=== PATIENT | male | born 1950 | race Caucasian/White ===

== ENCOUNTER 2023-09-26 07:37 | Emergency (ER) | payer MEDICARE, OTHER, SELFPAY ==
--- NOTE | 2023-09-26 07:37 | ECG_ITS ---
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 Measurements Intervals [place] Rate: 78 P: 59 [place]: 161 QRS: 39 QRSD: 108 T: 55 QT: 361 QTc: 413 Interpretive Statements SINUS RHYTHM INCOMPLETE RIGHT BUNDLE BRANCH BLOCK [90+ ms QRS DURATION, TERMINAL R IN V1/V2, 40+ ms S IN I/aVL/V4/V5/V6] No previous ECG available for comparison Electronically Signed On 09-27-2023 0:40:01 SIDE STAPLER by Vicki Sparks M.D. [id number] f
[2023-09-26 07:40] VITALS: BP 167/92; PULSE 82; RESP 16; TEMP 37.1; O2SAT 98; BMI 41.8
--- NOTE | 2023-09-26 07:40 | XR_ITS ---
WS: [id number] Portable AP upright chest, 09/26/2023 Clinical Data: chest pain Comparison: None. Findings: No nodules, masses or effusions are seen. The heart is normal. The pulmonary vascularity is not increased. No pneumonia or pneumothorax is seen. The diaphragms are flattened. The aortic arch s hows minimal calcification. There are monitor leads on the chest wall. There are orthopedic anchors s een in each humeral head. Impression: Atherosclerosis and hyperinflation.
--- NOTE | 2023-09-26 07:45 | ED_ITS ---
HPI - Chest Pain General: Chief Complaint: Chest Pain Stated Complaint: CP Time Seen by Provider: 09/26/23 07:38 Source: patient Mode of arrival: ambulatory History of Present Illness: 73-year-old male presents emergency room complaining of chest pain. Began this morning while he was sitting drinking coffee arrest he did fall and landed on his left side last night. He did not strike his head did not lose consciousness the episode this morning seem to resolve after he had a couple of nitro and took some aspirin. He has not had any other anginal episodes recently. Patient has a known history of coronary disease previous had angiography with stenting. He is not diabetic he is a former smoker he quit many years ago. No radiation of pain diaphoresis nausea or vomiting associated with this episode. MD complaint: chest pain Associated symptoms: Deny abdominal pain, dyspnea or fever(s) Review of Systems Const: Denies: fever(s) or chills Card: Reports: chest pain Resp: Denies: dyspnea GI: Denies: abdominal pain : Denies: dysuria, urinary frequency or urinary urgency Musc: Denies: neck pain or back pain Skin/Breast: Denies: rash PFSH ED PFSH: Medical History (Updated 09/26/23 @ 10:56 by Jordy Ngo DO) Coronary artery disease Hypertension Surgical History (Updated 09/26/23 @ 08:05 by Jordy Ngo DO) History of coronary artery stent placement Social History (Updated 09/26/23 @ 08:05 by Jordy Ngo DO) Smoking and tobacco/nicotine status: former use of tobacco/nicotine Physical Exam Const: COMMON NORMALS: no acute distress GENERAL APPEARANCE: cooperative and comfortable ORIENTATION/CONSCIOUSNESS: Yes awake, Yes oriented to person, Yes oriented to place and Yes oriented to time HENMT: COMMON NORMALS: normocephalic, atraumatic and hearing grossly normal bilaterally HEAD & SCALP: normocephalic and atraumatic Resp: COMMON NORMALS: normal respiratory effort, No retractions, No use of accessory muscles and clear to auscultation bilaterally AUSCULTATION: clear to auscultation bilaterally Cardio: COMMON NORMALS: regular rate, regular rhythm and No murmurs present (Cardio) RATE: regular rate RHYTHM: regular rhythm GI: COMMON NORMALS: Soft to palpation and No hepatosplenomegaly present AUSCULTATION: Yes normoactive bowel sounds PALPATION: Yes Soft to palpation, No Tenderness to palpation present (GI), No Guarding due to palpation present (GI) and Yes No hepatosplenomegaly present Extremity: COMMON NORMALS: normal to inspection, capillary refill normal, no clubbing, cyanosis or edema, no calf tenderness and no pedal edema Neuro: SENSORIUM/ORIENTATION: Yes oriented to person, Yes oriented to place and Yes oriented to time Skin: COMMON NORMALS: no rashes or lesions noted GENERAL SKIN EXAM: no rashes or lesions noted Course Vital Signs: Vital signs: Vital Signs Temperature 98.8 F 09/26/23 07:40 Pulse Rate 84 09/26/23 11:14 Respiratory Rate 17 09/26/23 11:14 Blood Pressure 119/78 09/26/23 11:14 Pulse Oximetry 97 09/26/23 11:14 Oxygen Delivery Me thod Room Air 09/26/23 09:57 MDM - Chest Pain Medical Decision Making No acute ST segment changes on his EKG cardiac enzymes trending negative. Pain is resolved and has not had any recurrence. We will discharge patient home on isosorbide mononitrate 30 mg once daily. Patient states about a year and a half ago he had a Lexiscan sestamibi stress test which he was told was negative. R echeck for any worsening symptoms also Case management try to get him an appointment to establish with cardiology Medical Records I reviewed the patient's medical records. Lab Data I reviewed the patient's lab results. 09/26/23 07:51 09/26/23 07:51 Laboratory Results WBC 7.90 10^3/uL (3.29-11.43) 09/26/23 07:51 RBC 4.31 10^6/uL (3.85-5.65) 09/26/23 07:51 Hgb 14.50 g/dL (11.27-16.99) 09/26/23 07:51 Hct 42.6 % (37-53) 09/26/23 07:51 MCV 98.8 fl (82-101) 09/26/23 07:51 MCH 33.6 pg (27-33) H 09/26/23 07:51 MCHC 34.0 g/dL (30-55) 09/26/23 07:51 RDW 13.1 % (12.1-15.1) 09/26/23 07:51 Plt Count 257 10^3/cmm (157-399) 09/26/23 07:51 MPV 9.2 fL (7.4-10.4) 09/26/23 07:51 Neut % (Auto) 48.2 % 09/26/23 07:51 Lymph % (Auto) 37.1 % 09/26/23 07:51 [place] % (Auto) 8.7 % 09/26/23 07:51 Eos % (Auto) 5.3 % 09/26/23 07:51 Baso % (Auto) 0.6 % 09/26/23 07:51 Neut # (Auto) 3.80 10^3/uL (1.8-7.7) 09/26/23 07:51 Lymph # (Auto) 2.9 10^3/uL (0.8-4.8) 09/26/23 07:51 [place] # (Auto) 0.7 10^3/uL (0.2-0.9) 09/26/23 07:51 Eos # (Auto) 0.4 10^3/uL (0.0-0.8) 09/26/23 07:51 Baso # (Auto) 0.1 10^3/uL (0.0-0.1) 09/26/23 07:51 Nucleated RBC % (auto) 0 % 09/26/23 07:51 Nucleated RBCs # 0.0 /100WBC 09/26/23 07:51 Sodium 139 mmol/L (136-145) 09/26/23 07:51 Potassium 4.3 mmol/L (3.5-5.1) 09/26/23 07:51 Chloride 105 mmol/L (98-107) 09/26/23 07:51 Carbon Dioxide 26 mmol/L (22-29) 09/26/23 07:51 Anion Gap 12.3 (5-19) 09/26/23 07:51 BUN 16 mg/dL (8-23) 09/26/23 07:51 Creatinine 0.8 mg/dL (0.7-1.2) 09/26/23 07:51 GFR Calculation Not Reportable 09/26/23 07:51 Glucose 109 mg/dL (65-115) 09/26/23 07:51 Calculated Osmolality 290 mOsm/kg (285-295) 09/26/23 07:51 Calcium 8.8 mg/dL (8.5-10.5) 09/26/23 07:51 Total Bilirubin 0.8 mg/dL (0.15-1.2) 09/26/23 07:51 AST 24 U/L (0-40) 09/26/23 07:51 ALT 27 U/L (0-41) 09/26/23 07:51 Alkaline Phosphatase 74 U/L (40-130) 09/26/23 07:51 Troponin T Baseline 11 ng/L (0-15) 09/26/23 07:51 Troponin T 120 Minute 11.28 ng/L (0-15) 09/26/23 09:39 Delta Troponin T 0.28 ABS# (0-10) 09/26/23 09:39 Total Protein 6.3 g/dL (6.6-8.7) L 09/26/23 07:51 Albumin 3.7 g/dL (3.5-5.2) 09/26/23 07:51 Globulin 2.6 g/dL (1.3-4.6) 09/26/23 07:51 All radiology interpretation(s) finalized by discharge Discharge Plan Discharge Patient Disposition: Home Clinical Impression: Chest pain Condition: Stable Prescriptions: New isosorbide mononitrate 30 mg tablet extended release 24 hr 30 mg PO DAILY Qty: 30 0RF No Action atorvastatin 80 mg Tablet 80 mg PO QPM meloxicam 15 mg Tablet 15 mg PO DAILY Aspir-81 81 mg Tablet,Delayed Release (Dr/Ec) 81 mg PO DAILY Tylenol Arthritis 650 mg Tablet Extended Release 650 mg PO Q8H PRN (Reason: Pain) Calcium 600 600 mg calcium (1,500 mg) Tablet 600 mg PO DAILY Nitrostat 0.4 mg Tablet, Sublingual 0.4 mg SUBLINGUAL Q5M PRN (Reason: Chest Pain) Rx Instructions: do not exceed 3 doses per episode Super B Complex Tablet 1 tab PO DAILY metoprolol succinate 25 mg Tablet Extended Release 24 Hr 25 mg PO DAILY albuterol sulfate 90 mcg/actuation Hfa Aerosol Inhaler 2 puff INHALATION Q6H PRN (Reason: Shortness Of Breath Or Wheezing) loratadine 10 mg Tablet 10 mg PO DAILY Vitamin D3 25 mcg (1,000 unit) Capsule 25 mcg PO DAILY Symbicort 80-4.5 mcg/actuation Hfa Aerosol Inhaler 2 puff INHALATION BID omeprazole 20 mg Tablet,Delayed Release (Dr/Ec) 20 mg PO DAILY PRN (Reason: Acid Reflux) [place] 3 Fish Oil 684-1,200 mg Capsule,Delayed Release(Dr/Ec) 1 cap PO DAILY Bvnwkt-Spssa-WSR (with antiox) 500-500-66.7 mg Tablet 1 tab PO DAILY Ofev 150 mg Capsule 150 mg PO Q12H Carnivora 1 tab PO TID Tumeric 800 800 mg PO DAILY Discharge Orders: Discharge ED (Routine); Ordered 09/26/23 Ordered By: Jordy Ngo Discharge Diet: Usual diet Discharge Activity: Limit activity as instructed Patient Instructions: Opioid Safety, Pain Management Activity Restrictions/Additional Instructions: Thank you for choosing [facility] for your healthcare needs today. Please realize this is an emergency room and that we are providing you with a medical screening exam and this may not be complete and all inclusive of all the testing and or work up that you may need to determine your ailment or severity of your illness. It is very important that you follow up as instructed or that you return to the Emergency Department should you have concerns or if your condition changes or worsens in any way. You are seen today for chest pain. Your cardiac enzymes and EKG unremarkable recommend he start isosorbide mononitrate once daily. Case management make arrangements for you to have a cardiac stress test and evaluation with cardiology. Return if you have further problems. Coding Level of Care Code ED Virtual Customer Assistant for Soniya Watkins
[2023-09-26] MEDS: aspirin 81 mg Chew Tablet 324 MG PO (07:58)
[2023-09-26 08:04] LABS: Basophils # 0.1 10^3/uL (0.0-0.1); Basophils % 0.6 %; Eosinophils # 0.4 10^3/uL (0.0-0.8); Eosinophils % 5.3 %; Hematocrit 42.6 % (37-53); Lymphocytes # 2.9 10^3/uL (0.8-4.8); Lymphocytes % 37.1 %; Mean Corpuscular Hemoglobin 33.6 pg (27-33); Mean Corpuscular Volume 98.8 fl (82-101); Mean Platelet Volume 9.2 fL (7.4-10.4); Monocytes # 0.7 10^3/uL (0.2-0.9); Monocytes % 8.7 %; Neutrophils % 48.2 %; Nucleated Red Blood Cells % 0 %; Platelet Count 257 10^3/cmm (157-399); Red Blood Count 4.31 10^6/uL (3.85-5.65); Red Cell Distribution Width 13.1 % (12.1-15.1)
[2023-09-26 08:14] LABS: Troponin(5th) Baseline 11 ng/L (0-15)
[2023-09-26 08:24] LABS: Alanine Aminotransferase 27 U/L (0-41); Albumin Level 3.7 g/dL (3.5-5.2); Alkaline Phosphatase 74 U/L (40-130); Anion Gap 12.3 (5-19); Aspartate Amino Transferase 24 U/L (0-40); Blood Urea Nitrogen 16 mg/dL (8-23); Calcium 8.8 mg/dL (8.5-10.5); Carbon Dioxide 26 mmol/L (22-29); Chloride 105 mmol/L (98-107); Globulin 2.6 g/dL (1.3-4.6); Glucose 109 mg/dL (65-115); Osmolality Calculated 290 mOsm/kg (285-295); Potassium 4.3 mmol/L (3.5-5.1); Sodium 139 mmol/L (136-145); Total Bilirubin 0.8 mg/dL (0.15-1.2); Total Protein 6.3 g/dL (6.6-8.7)
--- NOTE | 2023-09-26 09:21 | ECG_ITS ---
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 Measurements Intervals [place] Rate: 64 P: 34 [place]: 159 QRS: 34 QRSD: 113 T: 51 QT: 400 QTc: 414 Interpretive Statements SINUS RHYTHM POSSIBLE RIGHT VENTRICULAR CONDUCTION DELAY [RSR (QR) IN V1/V2] Compared to ECG 09/26/2023 07:37:13 Incomplete right bundle-branch block no longer present Electronically Signed On 09-27-2023 0:50:43 SPRAY GUN STRIPER by Vicki Sparks M.D. [email or web address].[email or web address] biloxiStereobotmercy [email or web address]/store/[id number]
[2023-09-26 09:57] VITALS: PULSE 72; O2SAT 95
[2023-09-26 10:22] LABS: Troponin 5 2HR 11.28 ng/L (0-15); Troponin 5 2HR Delta 0.28 ABS# (0-10)
[2023-09-26 11:14] VITALS: BP 119/78; PULSE 84; RESP 17; O2SAT 97
--- NOTE | 2023-09-27 08:18 | DCPLANNER ---
Referral was sent to heart care on 09/27/23 at 0818. Clinic to contact patient.
--- NOTE | 2023-10-03 08:48 | DCPLANNER ---
Fax sent to centralized scheduling for lesly-
== END 2023-09-26 11:15 | disposition home or self-care (01) ==
PROVIDERS: Emergency Provider Family Medicine
DX: R07.9 Chest pain, unspecified (principal); Z79.82 Long term (current) use of aspirin; I25.10 Atherosclerotic heart disease of native coronary artery without angina pectoris; I10 Essential (primary) hypertension; Z87.891 Personal history of nicotine dependence
CPT/HCPCS: 36415; 71045; 80053; 84484; 85025; 93005; 99285

== ENCOUNTER 2023-10-08 07:00 | Outpatient (CLI) | payer MEDICARE, OTHER, SELFPAY ==
[2023-10-08 07:46] VITALS: BMI 42.3
--- NOTE | 2023-10-08 07:47 | ECG_ITS ---
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 Interpretive Statements NAME OF STUDY: LEXISCAN SESTAMIBI STRESS TEST INDICATION: Atypical Chest Pain, PROCEDURE: At the baseline, the EKG revealed normal sinus rhythm with incomplete right bundle branch block pattern. Some early repolarization changes in the inferior leads. The baseline heart was 80 bpm with a blood pressue of 156/78 mm of Hg. Lexiscan was infused over a period of 20 seconds. A total of 0.4 milligrams of Lexiscan was infused. The stress phase was continued for a total of 5 minutes. Heart rate at the end of the stress phase was 97 bpm with a blood pressure 161/111 mm of Hg. The EKG at the peak infusion revealed no significant changes. Sestamibi was injected 20 seconds after the Lexiscan infusion. Heart rate at the end of the recovery phase was 95 bpm with a blood pressure of 153/95 mm of Hg. CONCLUSION: 1. No significant EKG changes with the LexiScan infusion 2. No LexiScan induced chest pain or cardiac arrhythmia 3. Normal blood pressure and heart rate response 4. Sestamibi/sestamibi perfusion scan pending; see separate report. Electronically Signed On 10-12-2023 13:02:54 SENIOR BUSINESS PROCESS ANALYST by Vicki Sparks M.D. [id number]
--- NOTE | 2023-10-08 07:48 | NMCV_ITS ---
NM edna perf SPECT r/s* [id number] Cristhian Juárez Age: 73 Gender: M : 1950 Exam Date: 10/08/2023 08:41 Ordering Phys: Jordy Ngo DO Technologist: JONATHON Lozano Exam Location: [facility] Indications: CHEST PAIN STRESS TEST Please see separate stress test report in [facility] for full findings IMAGE PROTOCOL Rest/Stress 1 Lexiscan Day Radiopharmaceutical Dose (mCi) Administration Site Administered by Rest: Tc-99m 10.8 IV JONATHON Chavez Sestamibi Stress:Tc-99m 32.4 IV JONATHON Chavez Sestamibi Rest: 08-Oct-2023 60 Discovery 630 Stress: 08-Oct-2023 30 Discovery 630 0.4mg Lexiscan. Images obtained in supine and prone position. SPECT RESULTS Technical Quality: Excellent Raw Data Analysis: Normal Image Corrections: No attenuation or motion correction applied Summed Stress Score: 9 Summed Rest Score: 4 Summed Difference Score: 5 PERFUSION FINDINGS Moderate area of moderately decreased tracer uptake was noted in the basal and mid basal, mid and apical inferior, mid inferolateral, mid anterolateral and apical lateral regions. Some reversibility was noted in those regions these regions except the apical lateral segment. FUNCTIONAL RESULTS (calculated via Gated SPECT) Stress Image LV EF (%): 68 Stress EDV (mL):74 TID: 1.19 Stress ESV (mL):24 FUNCTIONAL FINDINGS: Segmental wall motion analysis revealing no gross wall motion abnormalities IMPRESSIONS 1. Myocardial perfusion imaging revealing moderate area moderately decreased tracer uptake in the inferior, inferolateral, anterolateral and apical lateral regions with some reversibility except at the region of the apical lateral segment suggesting myocardial scarring with ischemia in the distribution of the l Right coronary artery/circumflex artery 2. Normal LV ejection fraction of 68%. 3. LV wall motion analysis revealing no gross wall motion abnormalities. 4. Normal LV volume No similar previous studies are available for comparison Dr Vicki Sparks MD [facility] (Electronically Signed) Final Date: 08 October 2023 14:04 S
[2023-10-08] MEDS: regadenoson 0.4 Mg/5 ml Syringe IVP (09:19)
[2023-10-08 09:33] VITALS: BP 153/95; PULSE 95
== END 2023-10-08 07:01 | disposition home or self-care (01) ==
PROVIDERS: Family Provider Internal Medicine; PCP Family Medicine; Visit Provider Family Medicine
DX: R07.9 Chest pain, unspecified (principal)
CPT/HCPCS: 36415; 78452; 93017; 96374; A9500; J2785

== ENCOUNTER → 2023-10-23 13:48 | Outpatient (BNVA) | payer MEDICARE, OTHER, SELFPAY | PROVIDERS: Family Provider Internal Medicine; PCP Family Medicine; Visit Provider Internal Medicine Cardiovascular Disease | DX: R94.39 Abnormal result of other cardiovascular function study (principal); I25.118 Atherosclerotic heart disease of native coronary artery with other forms of angina pectoris; I34.0 Nonrheumatic mitral (valve) insufficiency; I10 Essential (primary) hypertension; E78.5 Hyperlipidemia, unspecified; H53.8 Other visual disturbances; Z87.891 Personal history of nicotine dependence | CPT/HCPCS: 99204 ==

== ENCOUNTER 2023-10-30 12:00 | Outpatient (CLI) | payer MEDICARE, OTHER, SELFPAY ==
--- NOTE | 2023-10-30 | USCV_ITS ---
Cristhian Juárez Age: 73 Gender: M : 1950 Exam Date: 10/30/2023 15:11 Ordering Phys: Vicki Sparks MD ([email or web address]) Technologist: CT Exam Location: [facility] [place] Indication: stenosis Risk Factors: Previous Vascular Surgery: Right Brachial BP: / Left Brachial BP: / Right Left Velocity (cm/s) Spectral Plaque Velocity (cm/s) Spectral Plaque Syst/Diast Broadening Syst/Diast Broadening 71.00/ 13.10 Prox CCA 69.50 / 13.70 86.10/ 18.30 Mid CCA 75.50 / 12.90 90.70/ 15.60 Distal CCA 56.80 / 14.80 32.80/ 11.50 Prox ICA 57.70 / 14.80 49.70/ 16.70 Mid ICA 41.30 / 16.00 66.50/ 23.00 Distal ICA 41.90 / 14.90 82.40 ECA 50.30 0.73 ICA/CCA 0.76 Antegrade Vertebral Antegrade 24.20/ 9.10 cm/s 36.40/ 13.20 cm/s Tri Subclavian Tri 69.40 72.20 FINDINGS Mild to moderate heterogenous plaques at the bifurcations and proximal internal carotid arteries bilaterally. Antegrade flow in the vertebral artery Normal Doppler flow velocities in the external carotid, vertebral and subclavian arteries bilaterally CONCLUSIONS Mild to moderate heterogenous plaques at the bifurcations and proximal internal carotid arteries bilaterally, suggesting less than 50% stenosis. No significant stenosis in the proximal external carotid, vertebral or subclavian arteries, based on the above findings Dr Vicki Sparks MD [facility] (Electronically Signed) Final Date: 02 November 2023 09:38 S
== END 2023-10-30 15:00 | disposition home or self-care (01) ==
LOC: RAD 11-07 10:07
PROVIDERS: Family Provider Internal Medicine; PCP Family Medicine; Visit Provider Internal Medicine Cardiovascular Disease
DX: I65.23 Occlusion and stenosis of bilateral carotid arteries (principal); I63.9 Cerebral infarction, unspecified
CPT/HCPCS: 93880

== ENCOUNTER 2023-11-05 10:09 | Outpatient (CLI) | payer MEDICARE, OTHER, SELFPAY ==
--- NOTE | 2023-11-05 10:11 | USCV_ITS ---
Cristhian Juárez Age: 73 Gender: M : 1950 Exam Date: 11/05/2023 10:52 Ordering Phys: Vicki Sparks MD Technologist: Janet Estrella Exam Location: [facility] [place] Indication: CP, CHF, CAD BP: 148 / 88 HR: 80 Rhythm: Sinus Technical Quality: Adequate MEASUREMENTS (Male / Female) Normal Values 2D ECHO LV Diastolic Diameter PLAX 5.4 cm 4.2 - 5.9 / 3.9 - 5.3 cm LV Systolic Diameter PLAX 3.0 cm IVS Diastolic Thickness 1.4 cm 0.6 - 1.0 / 0.6 - 0.9 cm IVS Systolic Thickness 1.6 cm LVPW Diastolic Thickness 0.6 cm 0.6 - 1.0 / 0.6 - 0.9 cm LVPW Systolic Thickness 2.0 cm LVOT Diameter 2.2 cm LV Ejection Fraction 2D Teich 75.8 % LV Ejection Fraction MOD 2C 67.3 % LV Ejection Fraction 2C AL 65.6 % LA Diameter 3.0 cm LA Width 4.1 cm LA Height 4.3 cm RA Width 3.5 cm RA Height 4.8 cm Aorta at Sinotubular Diameter 3.4 cm IVC Diameter 1.8 cm M-MODE Aortic Annulus Diameter 3.5 cm LA Ao Ratio MM 1.0 MV E Point Septal Separation 0.9 cm DOPPLER AV Peak Velocity 145.0 cm/s LVOT Peak Velocity 85.0 cm/s AV Area Cont Eq vti 2.4 cm squared AV Area Cont Eq pk 2.1 cm squared MV Peak Velocity 119.0 cm/s MV Area PHT 4.3 cm squared Mitral E to A Ratio 0.8 MV E' Velocity 53.5 cm/s Mitral E to MV E' Ratio 13.0 Mitral E to LV E' Lateral Ratio 13.9 Mitral E to LV E' Septal Ratio 12.2 TR Peak Velocity 115.0 cm/s TR Peak Gradient 5.3 mmHg Right Atrial Pressure 5.0 mmHg Pulmonary Artery Systolic Pressu 10.3 mmHg PV Peak Velocity 83.0 cm/s RV Acceleration Time 0.1 s RV Ejection Time 0.3 s RV AcT/ET 0.4 FINDINGS Left Ventricle Normal left ventricular size and systolic function, EF 72 %. No regional wall motion abnormalities. Mild left ventricular hypertrophy. Grade I/IV diastolic dysfunction (abnormal relaxation filling pattern), normal to mildly elevated filling pressures. Right Ventricle The right ventricle is normal in size and function. Right Atrium The right atrium is normal in size. Left Atrium Mildly increased left atrial size. Mitral Valve Mild mitral annular calcification. Mild mitral valve regurgitation. Aortic Valve Thickened aortic valve. Tricuspid Valve No gross abnormalities noted Pulmonic Valve No gross abnormalities noted Pericardium Normal pericardium without effusion. Aorta Normal ascending aorta dimension. IVC The inferior vena cava appears normal. CONCLUSIONS Normal left ventricular size and systolic function, EF 72 %. No regional wall motion abnormalities. Mild left ventricular hypertrophy. Grade I/IV diastolic dysfunction (abnormal relaxation filling pattern), normal to mildly elevated filling pressures. Mild mitral annular calcification. Mild mitral valve regurgitation. Mildly increased left atrial size. There is no pericardial effusion. There are no intracardiac masses. No similar previous studies are available for comparison Dr Vicki Sparks MD [facility] (Electronically Signed) Final Date: 10 November 2023 13:27 S
== END 2023-11-05 16:00 | disposition home or self-care (01) ==
LOC: RAD 11-07 10:10
PROVIDERS: Family Provider Internal Medicine; PCP Family Medicine; Visit Provider Internal Medicine Cardiovascular Disease
DX: R07.9 Chest pain, unspecified (principal); I50.9 Heart failure, unspecified; I25.10 Atherosclerotic heart disease of native coronary artery without angina pectoris; I34.0 Nonrheumatic mitral (valve) insufficiency
CPT/HCPCS: 93306

== ENCOUNTER → 2023-11-26 14:18 | Outpatient (BNVA) | payer MEDICARE, OTHER, SELFPAY | PROVIDERS: Family Provider Internal Medicine; Visit Provider Family Medicine | DX: G62.9 Polyneuropathy, unspecified (principal); R94.6 Abnormal results of thyroid function studies | CPT/HCPCS: 82607; 82746; 84439; 84443; 84481; 85025 ==

== ENCOUNTER → 2023-12-25 07:50 | Outpatient (BNVA) | payer MEDICARE, OTHER, SELFPAY | PROVIDERS: Family Provider Internal Medicine; PCP Family Medicine; Visit Provider Nurse Practitioner Family | DX: Z85.820 Personal history of malignant melanoma of skin (principal); Z85.828 Personal history of other malignant neoplasm of skin; L57.0 Actinic keratosis; L82.0 Inflamed seborrheic keratosis; L82.1 Other seborrheic keratosis; L57.8 Other skin changes due to chronic exposure to nonionizing radiation; D22.5 Melanocytic nevi of trunk; L81.4 Other melanin hyperpigmentation | CPT/HCPCS: 17000; 17110; 99203 ==

== ENCOUNTER → 2024-01-01 12:29 | Outpatient (BNVA) | payer MEDICARE, OTHER, SELFPAY | PROVIDERS: Family Provider Internal Medicine; PCP Family Medicine; Visit Provider Family Medicine | DX: E03.8 Other specified hypothyroidism (principal); R05.9 Cough, unspecified | CPT/HCPCS: 84439; 84443; 84481 ==

== ENCOUNTER → 2024-01-22 13:02 | Outpatient (BNVA) | payer MEDICARE, OTHER, SELFPAY | PROVIDERS: Family Provider Internal Medicine; PCP Family Medicine; Visit Provider Internal Medicine Cardiovascular Disease | DX: I10 Essential (primary) hypertension (principal); I25.10 Atherosclerotic heart disease of native coronary artery without angina pectoris; Z95.5 Presence of coronary angioplasty implant and graft; R94.39 Abnormal result of other cardiovascular function study; E78.5 Hyperlipidemia, unspecified; Z87.891 Personal history of nicotine dependence | CPT/HCPCS: 99214 ==

== ENCOUNTER 2024-01-22 22:08 | Emergency (ER) | payer MEDICARE, OTHER, SELFPAY ==
[2024-01-22 22:11] VITALS: BP 146/88; PULSE 78; RESP 18; TEMP 36.6; O2SAT 96; BMI 43.6
--- NOTE | 2024-01-22 22:20 | XRR_ITS ---
PROCEDURE INFORMATION: Exam: XR Chest Exam date and time: 01/22/2024 10:21 PM Age: 73 years old Clinical indication: Pain; Chest pressure; Additional info: Chest pain TECHNIQUE: Imaging protocol: Radiologic exam of the chest. Views: 1 view. COMPARISON: CR XR chest 1V portable [id number] 09/26/2023 8:03 AM FINDINGS: Lungs: There are low lung volumes. There is enlargement of the pulmonary vascularity. There is mild thickening of the interstitial markings. Pleural spaces: Unremarkable. No pleural effusion. No pneumothorax. Heart/Mediastinum: The heart is mildly enlarged. Bones/joints: Unremarkable. Soft tissues: Soft tissue anchors are present in the humeral heads bilaterally. XR/XR chest 1V portable [id number] IMPRESSION: 1. Mild Congestive heart failure. 2. There are low lung volumes.
--- NOTE | 2024-01-22 22:20 | ECG_ITS ---
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 Measurements Intervals [place] Rate: 76 P: 63 SD: 168 QRS: 57 QRSD: 113 T: 63 QT: 365 QTc: 412 Interpretive Statements SINUS RHYTHM POSSIBLE RIGHT VENTRICULAR CONDUCTION DELAY [RSR (QR) IN V1/V2] Compared to ECG 09/26/2023 09:21:29 No significant changes Electronically Signed On 01-23-2024 10:54:16 [employer] by Yousuf Colon M.D. [id number]
[2024-01-22 22:25] LABS: Basophils # 0.1 10^3/uL (0.0-0.1); Basophils % 0.7 %; Eosinophils # 0.6 10^3/uL (0.0-0.8); Eosinophils % 7.2 %; Hematocrit 43.5 % (37-53); Lymphocytes # 2.8 10^3/uL (0.8-4.8); Lymphocytes % 36.5 %; Mean Corpuscular HGB Conc 33.1 g/dL (30-55); Mean Corpuscular Hemoglobin 32.8 pg (27-33); Mean Corpuscular Volume 99.1 fl (82-101); Mean Platelet Volume 9.1 fL (7.4-10.4); Monocytes # 0.8 10^3/uL (0.2-0.9); Monocytes % 10.4 %; Neutrophils # 3.42 10^3/uL (1.8-7.7); Neutrophils % 44.9 %; Nucleated Red Blood Cells % 0 %; Platelet Count 236 10^3/cmm (157-399); Red Blood Count 4.39 10^6/uL (3.85-5.65); Red Cell Distribution Width 13.1 % (12.1-15.1); White Blood Count 7.61 10^3/uL (3.29-11.43)
--- NOTE | 2024-01-22 22:30 | W.ED.CHESTPA ---
HPI - Chest Pain General: Chief Complaint: Chest Pain Stated Complaint: CP Time Seen by Provider: 01/22/24 22:18 History of Present Illness: Patient presents to the ER with complaints of chest pain of a dull achy pressure type that radiates straight to his back it does not radiate up into his neck or down his arms. Patient has had this pain before. Patient has had a stent in the past. Patient actually just saw Dr. Colon today where he said everything was looking good and he did not need anything in this he started having more symptoms. Patient denies any shortness of breath, fever or chills, diaphoresis, does say he is nauseated. Patient did take an aspirin today he is on Plavix metoprolol Ranexa. He did try to nitro but they did not provide any relief. Review of Systems General: Reports: 10 or more systems reviewed and unremarkable except in HPI and below PFSH ED PFSH: Medical History Pulmonary fibrosis History of melanoma Coronary artery disease Hypertension Surgical History History of rotator cuff surgery bilateral History of left knee replacement History of bilateral hip replacements History of coronary artery stent placement Family History Grandmother CAD (coronary artery disease) Father Testicular cancer Mother No problems noted. 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 Physical Exam Const: COMMON NORMALS: no acute distress, average body habitus, patient oriented x3, no limitations, healthy appearing, alert and well nourished HENMT: COMMON NORMALS: normocephalic, atraumatic, hearing grossly normal bilaterally, external ears normal, EAC's normal, Normal external nose present, moist oral mucous membranes and oropharynx normal HEAD & SCALP: normocephalic and atraumatic NOSE: Normal external nose present EXTERNAL EAR: Yes external ears normal EXTERNAL AUDITORY CANAL: EAC's normal Neck/C-Spine: COMMON NORMALS: no JVD Chest: COMMONS NORMALS: normal inspection of the chest and normal palpation of entire chest wall Resp: COMMON NORMALS: normal respiratory effort, No retractions, No use of accessory muscles and clear to auscultation bilaterally AUSCULTATION: clear to auscultation bilaterally Cardio: COMMON NORMALS: no JVD, regular rate, regular rhythm, S1 normal heart sound present, S2 normal heart sound present, No gallops present (Cardio), No clicks present (Cardio), No murmurs present (Cardio) and No rub (Cardio) RATE: regular rate RHYTHM: regular rhythm HEART SOUNDS: S1 normal heart sound present and S2 normal heart sound present GI: COMMON NORMALS: Normal to inspection, nondistended, normoactive bowel sounds present, Soft to palpation, non-tender, No hepatosplenomegaly present and no masses PALPATION: Yes Soft to palpation and Yes No hepatosplenomegaly present Extremity: NARRATIVE EXTREMITY EXAM: 1+ pitting edema bilateral lower extremities Neuro: COMMON NORMALS: patient oriented x3 SENSORIUM/ORIENTATION: Yes alert Course Vital Signs: Vital signs: Vital Signs Temperature 97.8 F 01/22/24 22:11 Pulse Rate 81 01/23/24 01:06 Respiratory Rate 19 H 01/23/24 01:06 Blood Pressure 152/104 01/23/24 01:06 Pulse Oximetry 91 01/23/24 01:06 Oxygen Delivery Me thod Room Air 01/22/24 23:46 MDM - Chest Pain Medical Decision Making Patient presents to the ER with chest pain. Patient was worked up in a standard chest pain fashion with serial EKGs, serial enzymes, chest x-ray all which essentially come back as negative. Upon further reevaluation of the patient patient was pain-free. Patient be discharged home to follow-up with his PCP and/or field clerk. Differential Diagnosis Unlikely acute massive pulmonary embolism, acute respiratory failure, acute myocardial infarction, cardiac arrest or sudden cardiac Medical Records I reviewed the patient's medical records. Lab Data I reviewed the patient's lab results. 01/22/24 22:20 01/22/24 22:45 Radiology Impressions Chest X-Ray 01/22/24 22:20 IMPRESSION: 1. Mild Congestive heart failure. 2. There are low lung volumes. Laboratory Results WBC 7.61 10^3/uL (3.29-11.43) 01/22/24 22:20 RBC 4.39 10^6/uL (3.85-5.65) 01/22/24 22:20 Hgb 14.40 g/dL (11.27-16.99) 01/22/24 22:20 Hct 43.5 % (37-53) 01/22/24 22:20 MCV 99.1 fl (82-101) 01/22/24 22:20 MCH 32.8 pg (27-33) 01/22/24 22:20 MCHC 33.1 g/dL (30-55) 01/22/24 22:20 RDW 13.1 % (12.1-15.1) 01/22/24 22:20 Plt Count 236 10^3/cmm (157-399) 01/22/24 22:20 MPV 9.1 fL (7.4-10.4) 01/22/24 22:20 Neut % (Auto) 44.9 % 01/22/24 22:20 Lymph % (Auto) 36.5 % 01/22/24 22:20 Mckenzie % (Auto) 10.4 % 01/22/24 22:20 Eos % (Auto) 7.2 % 01/22/24 22:20 Baso % (Auto) 0.7 % 01/22/24 22:20 Neut # (Auto) 3.42 10^3/uL (1.8-7.7) 01/22/24 22:20 Lymph # (Auto) 2.8 10^3/uL (0.8-4.8) 01/22/24 22:20 Mckenzie # (Auto) 0.8 10^3/uL (0.2-0.9) 01/22/24 22:20 Eos # (Auto) 0.6 10^3/uL (0.0-0.8) 01/22/24 22:20 Baso # (Auto) 0.1 10^3/uL (0.0-0.1) 01/22/24 22:20 Nucleated RBC % (auto) 0 % 01/22/24 22:20 Nucleated RBCs # 0.0 /100WBC 01/22/24 22:20 PT 12.70 SECONDS (12.1-14.9) 01/22/24 22:45 INR 0.93 (0.8-1.2) 01/22/24 22:45 Sodium 140 mmol/L (136-145) 01/22/24 22:45 Potassium 4.4 mmol/L (3.5-5.1) 01/22/24 22:45 Chloride 102 mmol/L (98-107) 01/22/24 22:45 Carbon Dioxide 30 mmol/L (22-29) H 01/22/24 22:45 Anion Gap 12.4 (5-19) 01/22/24 22:45 BUN 21 mg/dL (8-23) 01/22/24 22:45 Creatinine 1.0 mg/dL (0.7-1.2) 01/22/24 22:45 GFR Calculation Not Reportable 01/22/24 22:45 Glucose 110 mg/dL (65-115) 01/22/24 22:45 Calculated Osmolality 294 mOsm/kg (285-295) 01/22/24 22:45 Calcium 8.4 mg/dL (8.5-10.5) L 01/22/24 22:45 Total Bilirubin 0.6 mg/dL (0.15-1.2) 01/22/24 22:45 AST 23 U/L (0-40) 01/22/24 22:45 ALT 23 U/L (0-41) 01/22/24 22:45 Alkaline Phosphatase 88 U/L (40-130) 01/22/24 22:45 Troponin T Baseline 12 ng/L (0-15) 01/22/24 22:45 Troponin T 120 Minute 12.22 ng/L (0-15) 01/23/24 00:20 Delta Troponin T 0.22 ABS# (0-10) 01/23/24 00:20 Total Protein 6.3 g/dL (6.6-8.7) L 01/22/24 22:45 Albumin 3.4 g/dL (3.5-5.2) L 01/22/24 22:45 Globulin 2.9 g/dL (1.3-4.6) 01/22/24 22:45 All radiology interpretation(s) finalized by discharge EKG Data EKG 1: I personally reviewed and interpreted this EKG as follows: EKG interpretation date: 01/22/24 EKG interpretation time: 22:13 Prior EKG tracings: available for review Interpretation: Ventricular rate 76 bpm, VA interval 168, QRS duration 113, QTc of 396, sinus rhythm, possible right ventricular conduction delay Discharge Plan Discharge Patient Disposition: Home Clinical Impression: Atypical chest pain Condition: Stable Prescriptions: No Action clopidogrel [Plavix] 75 mg tablet 75 mg PO DAILY 30 Days Qty: 30 3RF ranolazine 500 mg tablet extended release 12 hr 500 mg PO BID 60 Days Qty: 120 5RF atorvastatin 80 mg Tablet 80 mg PO QPM meloxicam 15 mg Tablet 15 mg PO DAILY Aspir-81 81 mg Tablet,Delayed Release (Dr/Ec) 81 mg PO DAILY Tylenol Arthritis 650 mg Tablet Extended Release 650 mg PO Q8H PRN (Reason: Pain) Calcium 600 600 mg calcium (1,500 mg) Tablet 600 mg PO DAILY Nitrostat 0.4 mg Tablet, Sublingual 0.4 mg SUBLINGUAL Q5M PRN (Reason: Chest Pain) Rx Instructions: do not exceed 3 doses per episode Super B Complex Tablet 1 tab PO DAILY metoprolol succinate 25 mg Tablet Extended Release 24 Hr 25 mg PO DAILY loratadine 10 mg Tablet 10 mg PO DAILY Vitamin D3 25 mcg (1,000 unit) Capsule 25 mcg PO DAILY Orland 3 Fish Oil 684-1,200 mg Capsule,Delayed Release(Dr/Ec) 1 cap PO DAILY [id number] (with antiox) 500-500-66.7 mg Tablet 1 tab PO DAILY Ofev 150 mg Capsule 150 mg PO Q12H Tumeric 800 800 mg PO DAILY Discharge Orders: Discharge ED (Routine); Ordered 01/23/24 Ordered By: Davi Pond Referrals: Paola Wilson MD [Primary Care Provider] - Naun Bull MD [Family Provider] - Patient Instructions: Chest Pain - Noncardiac Activity Restrictions/Additional Instructions: Your workup in ER did not show any cardiac cause of your chest pain. It is felt to be noncardiac in nature. Please follow-up with your family practice physician or field clerk for further evaluation testing as needed. If your pain returns or worsens please feel free to return to the ER. Coding Level of Care Code ED Shop Superintendent for Soniya Watkins
[2024-01-22] MEDS: ondansetron 2 mg/ML SDV 2 mL 4 MG IVP (22:35)
[2024-01-22] MEDS: ketorolac 30 mg/mL INJ IVP (22:35)
[2024-01-22 23:02] LABS: INR 0.93 (0.8-1.2)
[2024-01-22 23:03] VITALS: BP 144/78; PULSE 74; RESP 14; O2SAT 92
[2024-01-22 23:08] LABS: Troponin(5th) Baseline 12 ng/L (0-15)
[2024-01-22 23:10] LABS: Alanine Aminotransferase 23 U/L (0-41); Albumin Level 3.4 g/dL (3.5-5.2); Alkaline Phosphatase 88 U/L (40-130); Anion Gap 12.4 (5-19); Aspartate Amino Transferase 23 U/L (0-40); Blood Urea Nitrogen 21 mg/dL (8-23); Calcium 8.4 mg/dL (8.5-10.5); Carbon Dioxide 30 mmol/L (22-29); Chloride 102 mmol/L (98-107); Creatinine Clr Calc Pharmacy 86.6463; Globulin 2.9 g/dL (1.3-4.6); Glucose 110 mg/dL (65-115); Osmolality Calculated 294 mOsm/kg (285-295); Potassium 4.4 mmol/L (3.5-5.1); Sodium 140 mmol/L (136-145); Total Bilirubin 0.6 mg/dL (0.15-1.2); Total Protein 6.3 g/dL (6.6-8.7)
[2024-01-22 23:46] VITALS: BP 157/91; PULSE 72; RESP 15; O2SAT 94
[2024-01-23 00:38] VITALS: BP 150/86; PULSE 80; RESP 17; O2SAT 94
[2024-01-23 00:48] LABS: Troponin 5 2HR 12.22 ng/L (0-15); Troponin 5 2HR Delta 0.22 ABS# (0-10)
[2024-01-23 01:06] VITALS: BP 152/104; PULSE 81; RESP 19; O2SAT 91
== END 2024-01-23 01:19 | disposition home or self-care (01) ==
PROVIDERS: Emergency Provider Emergency Medicine; Family Provider Internal Medicine; PCP Family Medicine
DX: R07.89 Other chest pain (principal); Z79.02 Long term (current) use of antithrombotics/antiplatelets; Z79.82 Long term (current) use of aspirin; Z87.891 Personal history of nicotine dependence; I25.10 Atherosclerotic heart disease of native coronary artery without angina pectoris; I10 Essential (primary) hypertension
CPT/HCPCS: 36415; 71045; 80053; 84484; 85025; 85610; 93005; 96374; 96375; 99285; J1885; J2405

== ENCOUNTER 2024-02-23 21:31 | Emergency (ER) | payer MEDICARE, OTHER, SELFPAY ==
[2024-02-23 21:32] VITALS: BP 164/84; PULSE 89; RESP 17; TEMP 36.6; O2SAT 97; BMI 45.4
[2024-02-23 21:41] VITALS: BP 164/84; PULSE 88; RESP 16; O2SAT 98
--- NOTE | 2024-02-23 21:46 | XRR_ITS ---
PROCEDURE INFORMATION: Exam: XR Chest Exam date and time: 02/23/2024 10:24 PM Age: 73 years old Clinical indication: Shortness of breath; Patient HX: SOB; Syncope; Additional info: SOB, syncope TECHNIQUE: Imaging protocol: Radiologic exam of the chest. Views: 1 view. COMPARISON: CR (CHEST, ) 01/22/2024 10:21 PM FINDINGS: Lungs: Unremarkable. No consolidation. Pleural spaces: Unremarkable. No pleural effusion. No pneumothorax. Heart/Mediastinum: Unremarkable. No cardiomegaly. Bones/joints: Anchors in the bilateral humeral heads. XR/XR chest 1V portable [id number] IMPRESSION: No acute findings.
[2024-02-23 21:56] LABS: Basophils % 0.4 %; Eosinophils # 0.4 10^3/uL (0.0-0.8); Eosinophils % 5.4 %; Hematocrit 42.8 % (37-53); Lymphocytes # 1.6 10^3/uL (0.8-4.8); Lymphocytes % 20.6 %; Mean Corpuscular HGB Conc 34.1 g/dL (30-55); Mean Corpuscular Hemoglobin 33.3 pg (27-33); Mean Corpuscular Volume 97.5 fl (82-101); Mean Platelet Volume 9.4 fL (7.4-10.4); Monocytes # 0.9 10^3/uL (0.2-0.9); Monocytes % 11.2 %; Neutrophils # 4.81 10^3/uL (1.8-7.7); Neutrophils % 62.1 %; Nucleated Red Blood Cells % 0 %; Platelet Count 275 10^3/cmm (157-399); Red Blood Count 4.39 10^6/uL (3.85-5.65); Red Cell Distribution Width 13.5 % (12.1-15.1); White Blood Count 7.75 10^3/uL (3.29-11.43)
[2024-02-23 22:08] LABS: Lactic Sepsis W/Reflex 1.8 mmol/L (0.5-2.2)
[2024-02-23 22:09] LABS: Troponin(5th) Baseline 13 ng/L (0-15)
[2024-02-23 22:22] LABS: Alanine Aminotransferase 28 U/L (0-41); Albumin Level 3.6 g/dL (3.5-5.2); Alkaline Phosphatase 74 U/L (40-130); Anion Gap 18.4 (5-19); Aspartate Amino Transferase 27 U/L (0-40); Blood Urea Nitrogen 19 mg/dL (8-23); C Reactive Protein 9.1 mg/L (0.0-4.9); Calcium 8.9 mg/dL (8.5-10.5); Carbon Dioxide 23 mmol/L (22-29); Chloride 101 mmol/L (98-107); Creatinine Clr Calc Pharmacy 85.8687; Glucose 125 mg/dL (65-115); NT Pro B Type Natriuretic Pept 44 pg/mL (0-125); Osmolality Calculated 290 mOsm/kg (285-295); Potassium 4.4 mmol/L (3.5-5.1); Sodium 138 mmol/L (136-145); Total Bilirubin 0.6 mg/dL (0.15-1.2); Total Protein 6.6 g/dL (6.6-8.7)
--- NOTE | 2024-02-23 22:24 | ECG_ITS ---
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 Measurements Intervals [place] Rate: 81 P: 72 ID: [id number] QRS: 48 QRSD: 116 T: 70 QT: 367 QTc: 428 Interpretive Statements SINUS RHYTHM POSSIBLE RIGHT VENTRICULAR CONDUCTION DELAY [RSR (QR) IN V1/V2] Compared to ECG 01/22/2024 22:13:09 No significant changes Electronically Signed On 02-24-2024 11:07:09 CDT by Dave Lizama M.D. [id number]
[2024-02-23 23:49] LABS: Adenovirus Not Detected (NOT DETECT); Chlamydia Pneumoniae Not Detected (NOT DETECT); Coronavirus 229E,HKU1,NL63,OC4 Not Detected (NOT DETECT); Human Metapneumovirus Not Detected (NOT DETECT); Human Rhinovirus/Enterovirus Not Detected (NOT DETECT); Influenza A Not Detected (NOT DETECT); Influenza A H1 Not Detected (NOT DETECT); Influenza A H1-2009 Not Detected (NOT DETECT); Influenza A H3 Not Detected (NOT DETECT); Influenza B Not Detected (NOT DETECT); Mycoplasma Pneumoniae Not Detected (NOT DETECT); Parainfluenza Virus Type 1 Not Detected (NOT DETECT); Parainfluenza Virus Type 2 Not Detected (NOT DETECT); Parainfluenza Virus Type 3 Detected (NOT DETECT); Parainfluenza Virus Type 4 Not Detected (NOT DETECT); Respiratory Syncytial Virus A Not Detected (NOT DETECT); Respiratory Syncytial Virus B Not Detected (NOT DETECT); SARS-COV-2 Not Detected (NOT DETECT)
[2024-02-23 23:51] LABS: Troponin 5 2HR 11.44 ng/L (0-15)
[2024-02-23 23:53] LABS: Troponin 5 2HR Delta -1.56 ABS# (0-10)
--- NOTE | 2024-02-23 23:56 | W.ED.SYNCOPE ---
HPI - Syncope General: Chief Complaint: Syncope Stated Complaint: SOB Time Seen by Provider: 02/23/24 21:41 History of Present Illness: 73-year-old male presenting with a cough and shortness of breath worsening over the past several days. He was seen by his PCP, and placed on antibiotics. Despite this, he has been running low-grade temperatures, and having significant coughing fits. He has been short of breath as well. This evening, he was in a coughing fit, and Coughing until he passed out. He woke up diaphoretic. His lungs have been more clear since this coughing fit he says. The syncopal episode concerned his , so they came to the hospital. Associated symptoms: Reports fever(s); Deny abdominal pain or chest pain Review of Systems Const: Reports: fever(s) and chills ENMT: Denies: throat pain Card: Reports: syncope; Denies: chest pain or palpitations Resp: Reports: dyspnea and productive cough GI: Denies: abdominal pain or vomiting PFS ED PFSH: Medical History Pulmonary fibrosis History of melanoma Coronary artery disease Hypertension Surgical History History of rotator cuff surgery bilateral History of left knee replacement History of bilateral hip replacements History of coronary artery stent placement Family History Grandmother CAD (coronary artery disease) Father Testicular cancer Mother No problems noted. 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 Physical Exam Const: COMMON NORMALS: no acute distress GENERAL APPEARANCE: cooperative, ill appearing (Mildly) and frail appearing (Mildly) HENMT: COMMON NORMALS: normocephalic, atraumatic and Normal external nose present HEAD & SCALP: normocephalic and atraumatic FACE & SINUS: normal facial exam and face symmetric NOSE: Normal external nose present Eye: COMMON NORMALS: Equal, round and reactive pupils present and EOMs intact bilaterally PUPIL: Yes Equal, round and reactive pupils present Neck/C-Spine: GENERAL: Yes trachea midline Chest: CHEST: Yes Symmetrical chest wall rise Resp: COMMON NORMALS: normal respiratory effort, No retractions, No use of accessory muscles and clear to auscultation bilaterally AUSCULTATION: clear to auscultation bilaterally Cardio: COMMON NORMALS: regular rate and regular rhythm RATE: regular rate RHYTHM: regular rhythm GI: COMMON NORMALS: Normal to inspection, nondistended, normoactive bowel sounds present Extremity: COMMON NORMALS: no pedal edema Neuro: HEMANT COMA SCALE: document GCS findings Hemant coma scale eye opening: Spontaneous Hemant coma scale verbal response: Orientated [place] coma scale motor response: Obey commands Hemant coma scale total score: 15 SENSORY EXAM: Yes extremities (intact) Psych: COMMON NORMALS: speech normal SPEECH: Yes normal speech Skin: COMMON NORMALS: no rashes or lesions noted GENERAL SKIN EXAM: no rashes or lesions noted Course Vital Signs: Vital signs: Vital Signs Temperature 97.8 F 02/23/24 21:32 Pulse Rate 94 02/24/24 01:04 Respiratory Rate 14 02/24/24 01:04 Blood Pressure 120/99 02/24/24 01:04 Pulse Oximetry 96 02/24/24 01:04 Oxygen Delivery Me thod Room Air 02/24/24 00:36 Oxygen Flow Rate 2 02/24/24 00:16 MDM - Syncope Medical Decision Making The patient has been slightly hypoxic intermittently here. CBC is normal. BMP is normal. Chest x-ray is normal. Parainfluenza virus type III is detected on his swab. His lactate is 1.8. His delta troponin is -1.6 at 2 hours. His BNP is 44. On further interview, the patient was sleeping when hypoxic. He does use his CPAP machine at night for sleep apnea. He is improved with breathing treatment here. He is prescribed steroids, cough suppressant, and scheduled inhaler use for the next 48 hours. He understands directions. He knows to return for worsening shortness of breath despite this. Lab Data 02/23/24 21:05 02/23/24 21:05 Radiology Impressions Chest X-Ray 02/23/24 21:46 IMPRESSION: No acute findings. Laboratory Results WBC 7.75 10^3/uL (3.29-11.43) 02/23/24 21:05 RBC 4.39 10^6/uL (3.85-5.65) 02/23/24 21:05 Hgb 14.60 g/dL (11.27-16.99) 02/23/24 21:05 Hct 42.8 % (37-53) 02/23/24 21:05 MCV 97.5 fl (82-101) 02/23/24 21:05 MCH 33.3 pg (27-33) H 02/23/24 21:05 MCHC 34.1 g/dL (30-55) 02/23/24 21:05 RDW 13.5 % (12.1-15.1) 02/23/24 21:05 Plt Count 275 10^3/cmm (157-399) 02/23/24 21:05 MPV 9.4 fL (7.4-10.4) 02/23/24 21:05 Neut % (Auto) 62.1 % 02/23/24 21:05 Lymph % (Auto) 20.6 % 02/23/24 21:05 Davidson % (Auto) 11.2 % 02/23/24 21:05 Eos % (Auto) 5.4 % 02/23/24 21:05 Baso % (Auto) 0.4 % 02/23/24 21:05 Neut # (Auto) 4.81 10^3/uL (1.8-7.7) 02/23/24 21:05 Lymph # (Auto) 1.6 10^3/uL (0.8-4.8) 02/23/24 21:05 Davidson # (Auto) 0.9 10^3/uL (0.2-0.9) 02/23/24 21:05 Eos # (Auto) 0.4 10^3/uL (0.0-0.8) 02/23/24 21:05 Baso # (Auto) 0.0 10^3/uL (0.0-0.1) 02/23/24 21:05 Nucleated RBC % (auto) 0 % 02/23/24 21:05 Nucleated RBCs # 0.0 /100WBC 02/23/24 21:05 Sodium 138 mmol/L (136-145) 02/23/24 21:05 Potassium 4.4 mmol/L (3.5-5.1) 02/23/24 21:05 Chloride 101 mmol/L (98-107) 02/23/24 21:05 Carbon Dioxide 23 mmol/L (22-29) 02/23/24 21:05 Anion Gap 18.4 (5-19) 02/23/24 21:05 BUN 19 mg/dL (8-23) 02/23/24 21:05 Creatinine 1.0 mg/dL (0.7-1.2) 02/23/24 21:05 GFR Calculation Not Reportable 02/23/24 21:05 Glucose 125 mg/dL (65-115) H 02/23/24 21:05 Calculated Osmolality 290 mOsm/kg (285-295) 02/23/24 21:05 Lactic Acid 1.8 mmol/L (0.5-2.2) 02/23/24 21:05 Calcium 8.9 mg/dL (8.5-10.5) 02/23/24 21:05 Total Bilirubin 0.6 mg/dL (0.15-1.2) 02/23/24 21:05 AST 27 U/L (0-40) 02/23/24 21:05 ALT 28 U/L (0-41) 02/23/24 21:05 Alkaline Phosphatase 74 U/L (40-130) 02/23/24 21:05 Troponin T Baseline 13 ng/L (0-15) 02/23/24 21:05 Troponin T 120 Minute 11.44 ng/L (0-15) 02/23/24 23:20 Delta Troponin T -1.56 ABS# (0-10) L 02/23/24 23:20 C-Reactive Protein 9.1 mg/L (0.0-4.9) H 02/23/24 21:05 NT-Pro-B Natriuret Pep 44 pg/mL (0-125) 02/23/24 21:05 Total Protein 6.6 g/dL (6.6-8.7) 02/23/24 21:05 Albumin 3.6 g/dL (3.5-5.2) 02/23/24 21:05 Globulin 3.0 g/dL (1.3-4.6) 02/23/24 21:05 Adenovirus (PCR) Not detected (NOT DETECT) 02/23/24 22:00 C. pneumoniae DNA (PCR) Not detected (NOT DETECT) 02/23/24 22:00 Coronavirus 229E (PCR) Not detected (NOT DETECT) 02/23/24 22:00 Human Metapneumovir PCR Not detected (NOT DETECT) 02/23/24 22:00 Influenza A (H1) PCR Not detected (NOT DETECT) 02/23/24 22:00 Influ A (H1/09) PCR Not detected (NOT DETECT) 02/23/24 22:00 Influenza A (H3) PCR Not detected (NOT DETECT) 02/23/24 22:00 Influenza Type A (PCR) Not detected (NOT DETECT) 02/23/24 22:00 Influenza Type B (PCR) Not detected (NOT DETECT) 02/23/24 22:00 M. pneumoniae (PCR) Not detected (NOT DETECT) 02/23/24 22:00 Parainfluenza 1 (PCR) Not detected (NOT DETECT) 02/23/24 22:00 Parainfluenza 2 (PCR) Not detected (NOT DETECT) 02/23/24 22:00 Parainfluenza 3 (PCR) Detected (NOT DETECT) A 02/23/24 22:00 Parainfluenza 4 (PCR) Not detected (NOT DETECT) 02/23/24 22:00 RSV Type A (PCR) Not detected (NOT DETECT) 02/23/24 22:00 RSV Type B (PCR) Not detected (NOT DETECT) 02/23/24 22:00 Entero/Rhino (PCR) Not detected (NOT DETECT) 02/23/24 22:00 SARS-CoV-2 (PCR) Not detected (NOT DETECT) 02/23/24 22:00 All radiology interpretation(s) finalized by discharge Discharge Plan Discharge Patient Disposition: Home Clinical Impression: Acute bronchitis due to parainfluenza virus Condition: Stable Prescriptions: New Medrol (Alejandro) 4 mg tablets,dose pack See Rx Instructions .ROUTE .COMPLEX Qty: 21 0RF Rx Instructions: orally per package directions codeine-guaifenesin 10-100 mg/5 mL liquid 5 ml PO Q6H PRN (Reason: cough) Qty: 118 0RF No Action ranolazine 500 mg tablet extended release 12 hr 500 mg PO BID 60 Days Qty: 120 5RF mupirocin 2 % ointment 1 applic topical BID Qty: 15 0RF albuterol sulfate 90 mcg/actuation HFA aerosol inhaler 2 inh inhalation QID PRN (Reason: shortness of breath or wheezing) Qty: 8.5 2RF benzonatate 100 mg capsule 100 mg PO TID PRN (Reason: cough) Qty: 45 0RF levofloxacin 750 mg tablet 750 mg PO DAILY Qty: 7 0RF clopidogrel 75 mg tablet 75 mg PO DAILY Qty: 90 3RF atorvastatin 80 mg Tablet 80 mg PO QPM meloxicam 15 mg Tablet 15 mg PO DAILY Aspir-81 81 mg Tablet,Delayed Release (Dr/Ec) 81 mg PO DAILY Tylenol Arthritis 650 mg Tablet Extended Release 650 mg PO Q8H PRN (Reason: Pain) Calcium 600 600 mg calcium (1,500 mg) Tablet 600 mg PO DAILY Nitrostat 0.4 mg Tablet, Sublingual 0.4 mg SUBLINGUAL Q5M PRN (Reason: Chest Pain) Rx Instructions: do not exceed 3 doses per episode Super B Complex Tablet 1 tab PO DAILY metoprolol succinate 25 mg Tablet Extended Release 24 Hr 25 mg PO DAILY loratadine 10 mg Tablet 10 mg PO DAILY Vitamin D3 25 mcg (1,000 unit) Capsule 25 mcg PO DAILY [place] 3 Fish Oil 684-1,200 mg Capsule,Delayed Release(Dr/Ec) 1 cap PO DAILY Jctxsj-Xiyqn-MZP (with antiox) 500-500-66.7 mg Tablet 1 tab PO DAILY Ofev 150 mg Capsule 150 mg PO Q12H Tumeric 800 800 mg PO DAILY Discharge Orders: Discharge ED (Routine); Ordered 02/24/24 Ordered By: John Chacko Referrals: Paola Wilson MD [Primary Care Provider] - 1-3 days Patient Instructions: Acute Bronchitis (ED), Opioid Safety, Pain Management Activity Restrictions/Additional Instructions: Medication as directed. You may stop your antibiotic. Use your inhaler every 4 hours while awake for the first 48 hours whether you feel you needed or not. Then you may use it as needed following. Use the prescribed cough syrup to prevent coughing fits. Return for lethargy, worsening shortness of breath despite treatment, inability to control fever despite treatment, other concerning symptoms. 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
[2024-02-24 00:16] VITALS: BP 139/85; PULSE 81; RESP 18; O2SAT 95
[2024-02-24] MEDS: methylPREDNISolone sod succ 125 mg/2 mL INJ IVP (00:27)
[2024-02-24 00:32] VITALS: PULSE 81; RESP 18; O2SAT 94
[2024-02-24] MEDS: ipratropium-albuterol 3 mL Neb INHALATION (00:32)
[2024-02-24 00:36] VITALS: PULSE 79; RESP 18; O2SAT 94
[2024-02-24 01:04] VITALS: BP 120/99; PULSE 94; RESP 14; O2SAT 96
== END 2024-02-24 01:02 | disposition home or self-care (01) ==
PROVIDERS: Emergency Provider Emergency Medicine; PCP Family Medicine
DX: J20.4 Acute bronchitis due to parainfluenza virus (principal); Z79.02 Long term (current) use of antithrombotics/antiplatelets; Z79.82 Long term (current) use of aspirin; Z11.52 Encounter for screening for COVID-19; Z87.891 Personal history of nicotine dependence; I25.10 Atherosclerotic heart disease of native coronary artery without angina pectoris; I10 Essential (primary) hypertension
CPT/HCPCS: 36415; 71045; 80053; 83605; 83880; 84484; 85025; 86140; 87040; 87486; 87581; 87633; 93005; 94640; 96374; 99285; J2919

== ENCOUNTER → 2024-06-03 11:12 | Outpatient (BNVA) | payer MEDICARE, OTHER, SELFPAY | PROVIDERS: PCP Family Medicine; Visit Provider Nurse Practitioner Family | DX: L57.0 Actinic keratosis (principal); L82.0 Inflamed seborrheic keratosis; L82.1 Other seborrheic keratosis; L57.8 Other skin changes due to chronic exposure to nonionizing radiation; D22.5 Melanocytic nevi of trunk; L81.4 Other melanin hyperpigmentation; Z85.820 Personal history of malignant melanoma of skin | CPT/HCPCS: 17000; 17110; 99213 ==

== ENCOUNTER → 2024-06-05 11:22 | Outpatient (BNVA) | payer MEDICARE, OTHER, SELFPAY | PROVIDERS: PCP Family Medicine; Visit Provider Student in an Organized Health Care Education/Training Program | DX: M65.351 Trigger finger, right little finger; M79.641 Pain in right hand | CPT/HCPCS: 73130; 99204 ==

== ENCOUNTER 2024-06-16 13:23 | Outpatient (CLI) | payer MEDICARE, OTHER, SELFPAY ==
--- NOTE | 2024-06-16 13:27 | XR_ITS ---
WS: [id number] CHEST 2 VIEWS HISTORY: persistent cough, history pulmonary fibrosis COMPARISON: 02/23/2024 Lungs: Very mild thickening of the interstitium throughout both lungs has progressed since the most r ecent study suggesting acute pneumonitis. No dense consolidation. Cardiac size: Normal. Mediastinum/Aorta: Mild atherosclerosis aorta. Bones: Bilateral rotator cuff anchors in each humeral head. XR/XR chest 2V* [id number] IMPRESSION: 1. Mild progression of interstitial thickening suggesting acute on chronic int erstitial lung disease. Correlate for mild pneumonitis. 2. Mild atherosclerosis aorta.
== END 2024-06-16 13:24 | disposition home or self-care (01) ==
LOC: RAD 13:26
PROVIDERS: PCP Family Medicine; Visit Provider Family Medicine
DX: R05.9 Cough, unspecified (principal); I10 Essential (primary) hypertension; G62.9 Polyneuropathy, unspecified; J84.9 Interstitial pulmonary disease, unspecified
CPT/HCPCS: 71046; 80053; 80061; 84443

== ENCOUNTER 2024-07-24 10:42 | Day surgery (SDC) | payer MEDICARE, OTHER, SELFPAY ==
[2024-07-24] VITALS (8 sets, daily range): BP systolic 105–140; BP diastolic 65–81; PULSE 72–98; RESP 16–18; TEMP 36.2–36.6; O2SAT 96–98; BMI 45.8
[2024-07-24] MEDS: sodium chloride 0.9% 1,000 ML 30 ML IV (11:00)
--- NOTE | 2024-07-24 11:00 | ANES.PREANE2 ---
Pre-Anesthetic Assessment Height/Weight: Height 1.7 m Weight 132.903 kg Temp Pulse Resp BP Pulse Ox O2 Del Method 98 F 98 16 140/81 96 Room Air 07/24/24 10:49 07/24/24 10:49 07/24/24 10:49 07/24/24 10:49 07/24/24 10:49 07/24/24 10:49 Operation Date: 07/24/24 11:35 Proposed Procedures p right small finger trigger release(Right) - Prateek [place], DO Familial anesthetic complications: NONE Was Beta Ricarda taken within 24 hours: Yes Was Clonidine taken within 24 hours: N/A Last intake: Intake Last Liquid Date 07/24/24 Last Liquid Time 06:00 Last Solid Date 07/23/24 Last Solid Time 23:30 Social No alcohol and No tobacco Exam alert, oriented x 3, clear to auscultation bilaterally and regular rate & rhythm Airway Mallampati: Class IV Dentition: full Pulmonary pulmonary fibrosis with multiple recent episodes of bronchitis/parainfluenza, finished a course of prednisone 2 weeks ago. States his breathing is better/back to baseline today CV/HEM Coronary Artery Disease (RCA stent - denies any recent chest pain) and Hypertension mild MVR GI Gastroesophageal Reflux Disease Metabolic Morbid Obesity Anesthetic Plan ASA status: 4 Anesthesia: MAC Risk of > 500 ml blood loss (7ml/kg in children): No Medications/Allergies Home Medications Medication Instructions Recorded Confirmed Last Taken Type acetaminophen 650 mg 650 mg PO Q8H PRN Pain 09/26/23 07/23/24 Unknown History tablet,extended release aspirin 81 mg tablet,delayed 81 mg PO DAILY 09/26/23 07/23/24 07/23/24 History release calcium carbonate (Calcium 600) 600 mg PO DAILY 09/26/23 07/23/24 07/23/24 History cholecalciferol (vitamin D3) 25 25 mcg PO DAILY 09/26/23 07/23/24 07/23/24 History mcg (1,000 unit) capsule (Vitamin D3) cmdartnexib-qnr-wtojnzjjs-hrb 1 tab PO DAILY 09/26/23 07/23/24 07/23/24 History 149-hyalur 500 mg-500 mg-66.7 mg tablet (Auyjzskrgdt-Aglgtozgonu-LEC (with antiox)) loratadine 10 mg tablet 10 mg PO DAILY 11/07/1107/23/24 07/23/24 History meloxicam 15 mg tablet 15 mg PO DAILY 09/26/23 07/23/24 07/19/24 History metoprolol succinate 25 mg 25 mg PO DAILY 09/26/23 07/23/24 07/23/24 History tablet,extended release 24 hr nintedanib 150 mg capsule (Ofev) 150 mg PO Q12H 09/26/23 07/24/24 07/23/24 History nitroglycerin 0.4 mg sublingual 0.4 mg sublingual Q5M PRN Chest 09/26/23 07/23/24 09/26/23 History tablet (Nitrostat) Pain omega-3 fatty acids-fish oil 684 1 cap PO DAILY 09/26/23 07/23/24 07/23/24 History mg-1,200 mg capsule,delayed release vitamin B complex 1 tab PO DAILY 09/26/23 07/23/24 07/23/24 History ranolazine 500 mg tablet,extended 500 mg PO BID 60 days #120 tabs 10/23/23 07/24/24 07/23/24 Rx release,12 hr albuterol sulfate 90 mcg/actuation 2 inh inhalation QID PRN shortness 02/19/24 07/23/24 07/23/24 Rx aerosol inhaler of breath or wheezing #8.5 grams clopidogrel 75 mg tablet 75 mg PO DAILY #90 tabs 02/22/24 07/23/24 07/19/24 Rx lovastatin 40 mg tablet 40 mg PO DAILY #90 tabs 06/17/24 07/23/24 07/23/24 Rx Allergies Allergy/AdvReac Type Severity Reaction Status Date / Time Penicillins Allergy ALGY-Hives Verified 07/18/24 07:55 Sulfa (Sulfonamide Allergy ALGY-Rash Verified 07/18/24 07:55 Antibiotics) [facility] Anesthesia Medical History Pulmonary fibrosis History of melanoma Coronary artery disease Hypertension Surgical History History of rotator cuff surgery bilateral History of left knee replacement History of bilateral hip replacements History of coronary artery stent placement Family History Grandmother CAD (coronary artery disease) Father Testicular cancer Mother No problems noted. 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
[2024-07-24] MEDS: ketorolac 30 mg/mL INJ IVP (11:20)
[2024-07-24] MEDS: scopolamine 1.5 Patch 1 PATCH TRANSDERMA (11:20)
[2024-07-24] MEDS: acetaminophen 1,000 MG/100 ML PIGGYBACK 400 MG IV (11:21)
--- NOTE | 2024-07-24 11:35 | W.PM.OPSFHP ---
Same Day Surgery H&P Indication for Procedure/HPI DATE OF PROCEDURE: July 24, 2024 CHIEF COMPLAINT/INDICATIONFOR SURGICAL PROCEDURE: Right small finger trigger PREOP DIAGNOSIS: Right small finger trigger PLANNED PROCEDURE: Operation Date: 07/24/24 11:35 Proposed Procedures p right small finger trigger release(Right) - Prateek Moreno DO Medications/Allergies* Home Medications Medication Instructions Recorded Confirmed Type acetaminophen 650 mg 650 mg PO Q8H PRN Pain 09/26/23 07/23/24 History tablet,extended release aspirin 81 mg tablet,delayed 81 mg PO DAILY 09/26/23 07/23/24 History release calcium carbonate (Calcium 600) 600 mg PO DAILY 09/26/23 07/23/24 History cholecalciferol (vitamin D3) 25 25 mcg PO DAILY 09/26/23 07/23/24 History mcg (1,000 unit) capsule (Vitamin D3) gqwbskvawyg-vsq-bocjuhzdq-hrb 1 tab PO DAILY 09/26/23 07/23/24 History 149-hyalur 500 mg-500 mg-66.7 mg tablet (Opffmmouqpe-Qcddklomzbw-YSJ (with antiox)) loratadine 10 mg tablet 10 mg PO DAILY 09/26/23 07/23/24 History meloxicam 15 mg tablet 15 mg PO DAILY 09/26/23 07/23/24 History metoprolol succinate 25 mg 25 mg PO DAILY 09/26/23 07/23/24 History tablet,extended release 24 hr nintedanib 150 mg capsule (Ofev) 150 mg PO Q12H 09/26/23 07/24/24 History nitroglycerin 0.4 mg sublingual 0.4 mg sublingual Q5M PRN Chest 09/26/23 07/23/24 History tablet (Nitrostat) Pain omega-3 fatty acids-fish oil 684 1 cap PO DAILY 09/26/23 07/23/24 History mg-1,200 mg capsule,delayed release vitamin B complex 1 tab PO DAILY 09/26/23 07/23/24 History Allergies/Adverse Reactions Allergy/AdvReac Type Severity Reaction Status Date / Time Penicillins Allergy ALGY-Hives Verified 07/18/24 07:55 Sulfa (Sulfonamide Allergy ALGY-Rash Verified 07/18/24 07:55 Antibiotics) Current Medications: Generic Name Dose Route Start Last Admin Trade Name Freq PRN Reason Stop Dose Admin Sodium Chloride 1,000 mls @ 30 mls/hr 07/24/24 10:45 07/24/24 11:00 Sodium Chloride 0.9% IV 07/25/24 10:44 30 mls/hr .Q24H ENRICO Administration Pertinent History/Comorbid Conditions* Medical History (Updated 07/15/24 @ 01:51 by Paola Wilson MD) Pulmonary fibrosis History of melanoma Coronary artery disease Hypertension Surgical History (Updated 11/26/23 @ 13:22 by Paola Wilson MD) History of rotator cuff surgery bilateral History of left knee replacement History of bilateral hip replacements History of coronary artery stent placement Family History (Updated 11/26/23 @ 13:28 by Paola Wilson MD) CAD (coronary artery disease) Grandmother Testicular cancer Father Social History Smoking and tobacco/nicotine status: never used tobacco/nicotine Quit status (tobacco/nicotine): has quit using Year quit tobacco: 1999 Alcohol intake: current Alcohol intake frequency: holidays/special occasions only Alcohol type: beer Substance/Drug Use: never Household members: spouse Marital status: 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 Pertinent Exam Findings alert, oriented x 3, operative site marked and procedure specific exam findings Please refer to detailed orthopedic examination on 06/05/2024 detailed below: Examination of the right hand tender over A1 philip right small finger Palpable nodule right small finger with mechanical triggering and catching noted Negative Tinel's over the carpal tunnel Slight decreased ROM right little finger Hand is warm well-perfused with cap refill less than 2 seconds Recommendations Surgery/Procedure today Other Plans: Plan to proceed to the OR today for right small finger trigger release. Patient understands the ins and outs of the procedure risk benefits complication alternatives of surgery and through shared decision make elects proceed with surgical intervention all questions answered at this time. Coding Level of Care Code Acute Code for J Luisg Fwraymundo
[2024-07-24] MEDS: clindamycin 900 MG/50 ML PREMIX 100 MG IV (12:10)
[2024-07-24] MEDS: ROPivacaine 0.5% SDV 30 mL 150 MG INJECTION (12:34)
[2024-07-24] MEDS: lidocaine 1% 10 ML INJ XX (12:34)
--- NOTE | 2024-07-24 12:43 | P.OP_ITS ---
Operative Report Date of procedure: July 24, 2024 Surgeon: Prateek Moreno DO Procedure: Preoperative diagnosis: Right small finger trigger post-op diagnosis: Same Procedure done: Right Small finger?trigger?release Surgeon: Prateek Moreno DO Estimated blood loss: 2cc Tourniquet time 5mins Complications: None Condition: stable Disposition: same day Brief History: Patient's been seen and worked up in the outpatient setting and findings consistent with preoperative diagnosis of right Small finger?trigger.? He is failed conservative treatment.? Continues to have mechanical locking and catching.? Severe pain as well.? We talked about treatment options nonoperative versus operative intervention.? ?Patient understands the risk benefits complication alternatives of surgical nonsurgical treatment options.? Understanding his risks with surgery he elects proceed with surgical intervention.? Consent obtained.? Here today to proceed with surgical intervention.? All questions answered. Procedure: Patient was seen and evaluated in the preoperative holding area.? Consent was reviewed and signed with patient.? Seen evaluated by Anesthesia Department.? Once cleared for surgery was brought back to the operative suite.? Placed in supine position on the OR table all bony prominences well-padded patient properly secured to the bed.? Patient's right arm was then placed to the armboard.? A nonsterile tourniquet applied to the right upper arm.? Patient's right upper extremity was then prepped and draped in standard orthopedic fashion.? Final timeout performed.? Patient received appropriate preoperative antibiotics. Esmarch tourniquet was used exsanguinate the right upper extremity tourniquet insufflated to 250 mmHg. Under sterile aseptic technique local digital block was performed to the right Small finger.? Once appropriately anesthetized a standard horizontal/oblique incision was made centering over the A1 philip following patient's flexor crease.? Sharp scalpel incision was made only through skin and then switched to Littler dissection scissors and spread longitudinally directly over the flexor tendon sheath.? I then mobilized both radially and ulnarly and Kasdan retractors were used and placed by my assistant professor of archaeology to protect neurovascular bundle.? Next I visualized the A1 philip and this was incised with a scalpel.? I then switched to dissection scissors and released the A1 philip both proximally as well as distally to its entirety.? Significant tendon sheath fluid was noted consistent with inflammation.? Mild fraying of the flexor tendons noted but no tear.? At this point I utilized a rag nail and pulled the tendons FDS and FDP out of the incision and no?triggering was noted.? I then had anesthesia wake up the patient and patient was able to actively flex and extend small finger with no?triggering.? This point thorough irrigation was performed.? Tourniquet deflated hemostasis satisfactory with bipolar.? I then subsequently closed the incision with interrupted nylon suture.? Xeroform 4 x 4's, Kerlix and an Stef wrap was applied for a bulky soft dressing.? Patient was then subsequently awakened from anesthesia and taken to PACU in stable condition tolerated proced ure without issues. Disposition: Patient taken back in stable condition recovering well.? Patient will receive appropriate discharge instruction as well as pain medication postoperatively.? Patient to follow-up with orthopedics in the office in 2 weeks for repeat evaluation and incision check.? Patient understands that any questions or concerns and contact the office.? All questions answered.
--- NOTE | 2024-07-24 12:43 | P.BOP_ITS ---
Date of Procedure: 07/24/2024 Surgeon: Prateek Moreno DO Reproduction Specialist(s): None Procedure(s) performed: Right small finger trigger release Findings of the procedure(s): Patient found to have a right small finger trigger underwent procedure as planned without issues or complications prior to closing was able to have anesthesia slowly wake the patient up to follow commands and was able to make a full fist extend the digit without any triggering noted. Estimated blood loss: 2 mL Specimen(s) removed: None Post-operative diagnosis: Right small finger trigger
--- NOTE | 2024-07-24 13:41 | ANE.PACU2 ---
Inpatient post-anesthesia follow up: Airway intact: Yes Vital signs: Temperature 97.5 F Pulse Rate 76 Respiratory Rate 16 Blood Pressure 132/75 Pulse Oximetry 96 Oxygen Delivery Me thod Room Air Oxygen Flow Rate Fraction of Inspir ed Oxygen Hydration adequate: Yes Nausea and vomiting: No Pain level: 1 Mental status: Baseline
== END 2024-07-24 13:42 | disposition home or self-care (01) ==
PROVIDERS: PCP Family Medicine; Visit Provider Student in an Organized Health Care Education/Training Program
PROC: (CPT 26055; principal; 2024-07-24 11:35)
DX: M65.351 Trigger finger, right little finger (principal); I10 Essential (primary) hypertension; Z79.899 Other long term (current) drug therapy; Z88.0 Allergy status to penicillin; Z88.2 Allergy status to sulfonamides
CPT/HCPCS: 26055; J0131; J1885; J2704; J2795; J3010; J3490; J7030

== ENCOUNTER → 2024-08-06 15:28 | Outpatient (BNVA) | payer MEDICARE, OTHER, SELFPAY | PROVIDERS: PCP Family Medicine; Visit Provider Internal Medicine Cardiovascular Disease | DX: I34.0 Nonrheumatic mitral (valve) insufficiency (principal); Z95.5 Presence of coronary angioplasty implant and graft; I10 Essential (primary) hypertension; E78.5 Hyperlipidemia, unspecified | CPT/HCPCS: 99213 ==

== ENCOUNTER → 2024-08-07 13:36 | Outpatient (BNVA) | payer MEDICARE, OTHER, SELFPAY | PROVIDERS: PCP Family Medicine; Visit Provider Physician Assistant | DX: Z98.890 Other specified postprocedural states (principal) | CPT/HCPCS: 99024 ==

== ENCOUNTER → 2024-09-01 11:25 | Outpatient (BNVA) | payer MEDICARE, OTHER, SELFPAY | PROVIDERS: PCP Family Medicine; Visit Provider Family Medicine | DX: E78.5 Hyperlipidemia, unspecified (principal) | CPT/HCPCS: 80061 ==

== ENCOUNTER 2024-09-25 11:27 | Emergency (ER) | payer MEDICARE, OTHER, SELFPAY ==
[2024-09-25] VITALS (11 sets, daily range): BP systolic 132–170; BP diastolic 73–98; PULSE 75–86; RESP 13–23; O2SAT 93–97; BMI 46.2
--- NOTE | 2024-09-25 11:34 | ECG_ITS ---
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 Measurements Intervals [place] Rate: 87 P: 56 SC: 163 QRS: 27 QRSD: 110 T: 46 QT: 340 QTc: 409 Interpretive Statements SINUS RHYTHM WITH OCCASIONAL SUPRAVENTRICULAR PREMATURE COMPLEXES LOW QRS VOLTAGE IN PRECORDIAL LEADS [QRS DEFLECTION < 1.0 mV IN CHEST LEADS] INCOMPLETE RIGHT BUNDLE BRANCH BLOCK [90+ ms QRS DURATION, TERMINAL R IN V1/V2, 40+ ms S IN I/aVL/V4/V5/V6] Compared to ECG 02/23/2024 22:24:48 Low QRS voltage now present Incomplete right bundle-branch block now present Electronically Signed On 09-25-2024 22:03:00 FIELD SALES TRAINER by Vicki Sparks M.D. [id number]
--- NOTE | 2024-09-25 11:52 | XR_ITS ---
WS: [id number] XR chest 1V portable [id number] REASON FOR EXAM: Chest pain FINDINGS: The chest is unchanged compared to 06/16/2024. Moderate tortuosity and calcification of the thoracic aorta. Prominent central pulmonary arteries. Chronic coarse reticular interstitial changes in both lower lung wade without definite acute pulmon annia parenchymal or pleural abnormality. Calcified granulomas disease bilaterally. No dominant noncalcified nodule or lung mass. XR/XR chest 1V portable [id number] IMPRESSION: No acute abnormality. Stable chest with prominent central pulmonary arteries.
[2024-09-25 12:02] LABS: Basophils # 0.1 10^3/uL (0.0-0.1); Basophils % 1.1 %; Eosinophils # 0.5 10^3/uL (0.0-0.8); Eosinophils % 8.6 %; Hematocrit 46.2 % (37-53); Lymphocytes # 2.3 10^3/uL (0.8-4.8); Lymphocytes % 41.2 %; Mean Corpuscular HGB Conc 31.8 g/dL (30-55); Mean Corpuscular Hemoglobin 32.3 pg (27-33); Mean Corpuscular Volume 101.5 fl (82-101); Monocytes # 0.5 10^3/uL (0.2-0.9); Monocytes % 8.4 %; Neutrophils # 2.26 10^3/uL (1.8-7.7); Neutrophils % 40.5 %; Nucleated Red Blood Cells % 0 %; Platelet Count 252 10^3/cmm (157-399); Red Blood Count 4.55 10^6/uL (3.85-5.65); Red Cell Distribution Width 13.6 % (12.1-15.1); White Blood Count 5.58 10^3/uL (3.29-11.43)
[2024-09-25] MEDS: aspirin 81 mg Chew Tablet 324 MG PO (12:13)
[2024-09-25] MEDS: nitroglycerin 0.4 mg sublingual Tablet SUBLINGUAL (12:14)
[2024-09-25 12:21] LABS: Alanine Aminotransferase 19 U/L (0-41); Albumin Level 3.5 g/dL (3.5-5.2); Alkaline Phosphatase 75 U/L (40-130); Blood Urea Nitrogen 10 mg/dL (8-23); Calcium 8.5 mg/dL (8.5-10.5); Carbon Dioxide 24 mmol/L (22-29); Chloride 103 mmol/L (98-107); Creatinine Clr Calc Pharmacy 85.4187; Globulin 2.6 g/dL (1.3-4.6); Glucose 140 mg/dL (65-115); Lipase 43 U/L (13-60); Osmolality Calculated 291 mOsm/kg (285-295); Sodium 140 mmol/L (136-145); Total Bilirubin 0.4 mg/dL (0.15-1.2); Total Protein 6.1 g/dL (6.6-8.7)
[2024-09-25 12:25] LABS: Troponin(5th) Baseline 13 ng/L (0-15)
[2024-09-25 12:28] LABS: Aspartate Amino Transferase 29 U/L (0-40)
--- NOTE | 2024-09-25 13:03 | W.ED.CHESTPA ---
HPI - Chest Pain General: Chief Complaint: Chest Pain Stated Complaint: cp Time Seen by Provider: 09/25/24 11:52 History of Present Illness: 74-year-old man with a history of coronary artery disease status post stents on Plavix, hypertension and obesity who presents to the emergency room with epigastric discomfort and belching. He says whenever he had a heart attack in the past he had epigastric pain at that time as well. No diaphoresis. No nausea or vomiting. No shortness of breath. No altered mental status. No focal motor deficits. Related Data Home Medications Medication Instructions Recorded Confirmed acetaminophen 650 mg 650 mg PO Q8H PRN Pain 09/26/23 09/25/24 tablet,extended release aspirin 81 mg tablet,delayed 81 mg PO DAILY 09/26/23 09/25/24 release calcium carbonate (Calcium 600) 600 mg PO DAILY 09/26/23 09/25/24 cholecalciferol (vitamin D3) 25 25 mcg PO DAILY 09/26/23 09/25/24 mcg (1,000 unit) capsule (Vitamin D3) ttzxjtqkdsx-idy-pypfuavcs-hrb 1 tab PO DAILY 09/26/23 09/25/24 149-hyalur 500 mg-500 mg-66.7 mg tablet (Lefsjeykwwe-Digotnzthnn-YOU (with antiox)) loratadine 10 mg tablet 10 mg PO DAILY 09/26/23 09/25/24 meloxicam 15 mg tablet 15 mg PO DAILY 09/26/23 09/25/24 metoprolol succinate 25 mg 25 mg PO DAILY 09/26/23 09/25/24 tablet,extended release 24 hr nitroglycerin 0.4 mg sublingual 0.4 mg sublingual Q5M PRN Chest 09/26/23 09/25/24 tablet (Nitrostat) Pain vitamin B complex 1 tab PO DAILY 09/26/23 09/25/24 Magic Mouthwash See Rx Instructions .Route .COMPLEX 09/25/24 09/25/24 lovastatin 40 mg tablet 40 mg PO DAILY 09/25/24 09/25/24 nintedanib 100 mg capsule (Ofev) 100 mg PO Q12H 09/25/24 09/25/24 Previous Rx's Medication Instructions Recorded ranolazine 500 mg tablet,extended 500 mg PO BID 60 days #120 tabs 10/23/23 release,12 hr albuterol sulfate 90 mcg/actuation 2 inh inhalation QID PRN shortness 02/19/24 aerosol inhaler of breath or wheezing #8.5 grams clopidogrel 75 mg tablet 75 mg PO DAILY #90 tabs 02/22/24 budesonide-formoterol HFA 80 2 puff inhalation BID #10.2 grams 08/24/24 mcg-4.5 mcg/actuation aerosol inhaler (Symbicort) erythromycin 5 mg/gram (0.5 %) eye 0.5 inch ophthalmic (eye) QID #3.5 09/23/24 ointment (3.5 gram tube) grams Allergies Allergy/AdvReac Type Severity Reaction Status Date / Time Penicillins Allergy ALGY-Hives Verified 09/23/24 07:15 Sulfa (Sulfonamide Allergy ALGY-Rash Verified 09/23/24 07:15 Antibiotics) Review of Systems Narrative: Constitutional symptoms: Negative except as documented in HPI. Skin symptoms: Negative except as documented in HPI. Eye symptoms: Negative except as documented in HPI. ENMT symptoms: Negative except as documented in HPI. Respiratory symptoms: Negative except as documented in HPI. Cardiovascular symptoms: Negative except as documented in HPI. Gastrointestinal symptoms: Negative except as documented in HPI. Genitourinary symptoms: Negative except as documented in HPI. Musculoskeletal symptoms: Negative except as documented in HPI. Neurologic symptoms: Negative except as documented in HPI. Psychiatric symptoms: Negative except as documented in HPI. Endocrine symptoms: Negative except as documented in HPI. PFSH ED PFSH: Medical History Pulmonary fibrosis History of melanoma Coronary artery disease Hypertension Surgical History Status post trigger finger release History of rotator cuff surgery bilateral History of left knee replacement History of bilateral hip replacements History of coronary artery stent placement Family History Grandmother CAD (coronary artery disease) Father Testicular cancer Mother No problems noted. 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 Skin: Warm, dry. Head: Normocephalic, atraumatic. Neck: Supple, trachea midline. Eye: Extraocular movements are intact. Ears, nose, mouth and throat: mucosa moist. Cardiovascular: Regular, Normal peripheral perfusion. Respiratory: Lungs are clear to auscultation, respirations are non-labored, breath sounds are equal, Symmetrical chest wall expansion. Gastrointestinal: Soft, epigastric tenderness to palpation, Non distended Musculoskeletal: Normal ROM, no deformity. Neurological: Alert and oriented, No focal neurological deficit observed. Psychiatric: Cooperative, appropriate mood & affect. Course Vital Signs: Vital signs: Vital Signs Pulse Rate 75 09/25/24 12:13 Respiratory Rate 14 09/25/24 12:13 Blood Pressure 137/77 09/25/24 12:13 Pulse Oximetry 97 09/25/24 12:13 Oxygen Delivery Me thod Room Air 09/25/24 12:13 MDM - Chest Pain Medical Decision Making Differential diagnosis for patient with chest pain/epigastric discomfort includes but is not limited to and based on the above HPI, review of systems and physical exam: Pneumonia. unstable angina. angina. Acute coronary syndrome / CO. Pulmonary embolism. Costochondritis / musculoskeletal. Pleurisy. Pericarditis. Esophageal spasm. Pancreatis. Cholecystitis. Dyspepsia. Indigestion. Orders placed to evaluate differential diagnosis based on the above differential, HPI and physical exam EKG: Time 1131. Rate 87. Normal sinus rhythm, No ST-T changes, PVCs, normal SD & QRS intervals, This was reviewed and interpreted by myself the ER physician at 1140. Repeat EKG: Time 1312. Rate 74. PVCs. Normal sinus rhythm, No ST-T changes, normal SD & QRS intervals, This was reviewed and interpreted by myself the ER physician at 1315. No significant changes from EKG done previously today in the ER Chest x-ray: No acute process. No infiltrate. No pneumothorax. This was reviewed and interpreted by myself the ER physician. Lab Review: Laboratory results were reviewed and interpreted by myself the emergency room physician. No leukocytosis. No anemia. No renal failure. Serial cardiac markers are negative. I reviewed the patient's medical record. Reexamination: Patient did not have improvement with nitroglycerin. He did have improvement with GI cocktail and IV Pepcid. No increased work of breathing. No altered mental status. Assessment and plan: Noncardiac chest pain Indigestion IV Pepcid and p.o. GI cocktail. - Discharged home - Discussed findings and plan with patient. Answered any questions. - All laboratory values were reviewed and interpreted personally by myself, the ER physician - All imaging was reviewed and interpreted personally by myself, the ER physician. - Evaluation and treatment of this problem were appropriate in the emergency setting Lab Data 09/25/24 11:44 09/25/24 11:44 Radiology Impressions Chest X-Ray 09/25/24 11:52 IMPRESSION: No acute abnormality. Stable chest with prominent central pulmonary arteries. Laboratory Results WBC 5.58 10^3/uL (3.29-11.43) 09/25/24 11:44 RBC 4.55 10^6/uL (3.85-5.65) 09/25/24 11:44 Hgb 14.70 g/dL (11.27-16.99) 09/25/24 11:44 Hct 46.2 % (37-53) 09/25/24 11:44 MCV 101.5 fl (82-101) H 09/25/24 11:44 MCH 32.3 pg (27-33) 09/25/24 11:44 MCHC 31.8 g/dL (30-55) 09/25/24 11:44 RDW 13.6 % (12.1-15.1) 09/25/24 11:44 Plt Count 252 10^3/cmm (157-399) 09/25/24 11:44 MPV 9.0 fL (7.4-10.4) 09/25/24 11:44 Neut % (Auto) 40.5 % 09/25/24 11:44 Lymph % (Auto) 41.2 % 09/25/24 11:44 [place] % (Auto) 8.4 % 09/25/24 11:44 Eos % (Auto) 8.6 % 09/25/24 11:44 Baso % (Auto) 1.1 % 09/25/24 11:44 Neut # (Auto) 2.26 10^3/uL (1.8-7.7) 09/25/24 11:44 Lymph # (Auto) 2.3 10^3/uL (0.8-4.8) 09/25/24 11:44 [place] # (Auto) 0.5 10^3/uL (0.2-0.9) 09/25/24 11:44 Eos # (Auto) 0.5 10^3/uL (0.0-0.8) 09/25/24 11:44 Baso # (Auto) 0.1 10^3/uL (0.0-0.1) 09/25/24 11:44 Nucleated RBC % (auto) 0 % 09/25/24 11:44 Nucleated RBCs # 0.0 /100WBC 09/25/24 11:44 Sodium 140 mmol/L (136-145) 09/25/24 11:44 Potassium 5.0 mmol/L (3.5-5.1) 09/25/24 11:44 Chloride 103 mmol/L (98-107) 09/25/24 11:44 Carbon Dioxide 24 mmol/L (22-29) 09/25/24 11:44 Anion Gap 18.0 (5-19) 09/25/24 11:44 BUN 10 mg/dL (8-23) 09/25/24 11:44 Creatinine 1.0 mg/dL (0.7-1.2) 09/25/24 11:44 GFR Calculation Not Reportable 09/25/24 11:44 Glucose 140 mg/dL (65-115) H 09/25/24 11:44 Calculated Osmolality 291 mOsm/kg (285-295) 09/25/24 11:44 Calcium 8.5 mg/dL (8.5-10.5) 09/25/24 11:44 Total Bilirubin 0.4 mg/dL (0.15-1.2) 09/25/24 11:44 AST 29 U/L (0-40) 09/25/24 11:44 ALT 19 U/L (0-41) 09/25/24 11:44 Alkaline Phosphatase 75 U/L (40-130) 09/25/24 11:44 Troponin T Baseline 13 ng/L (0-15) 09/25/24 11:44 Troponin T 120 Minute 11.25 ng/L (0-15) 09/25/24 14:08 Delta Troponin T -1.75 ABS# (0-10) L 09/25/24 14:08 Total Protein 6.1 g/dL (6.6-8.7) L 09/25/24 11:44 Albumin 3.5 g/dL (3.5-5.2) 09/25/24 11:44 Globulin 2.6 g/dL (1.3-4.6) 09/25/24 11:44 Lipase 43 U/L (13-60) 09/25/24 11:44 Amorphous Sediment Not Reportable 09/25/24 14:48 All radiology interpretation(s) finalized by discharge Discharge Plan Discharge Patient Disposition: Home Clinical Impression: Non-cardiac chest pain, Dyspepsia Condition: Stable Prescriptions: No Action ranolazine 500 mg tablet extended release 12 hr 500 mg PO BID 60 Days Qty: 120 5RF albuterol sulfate 90 mcg/actuation HFA aerosol inhaler 2 inh inhalation QID PRN (Reason: shortness of breath or wheezing) Qty: 8.5 2RF budesonide-formoterol [Symbicort] 80-4.5 mcg/actuation HFA aerosol inhaler 2 puff inhalation BID Qty: 10.2 0RF erythromycin 5 mg/gram (0.5 %) ointment 0.5 inch ophthalmic (eye) QID Qty: 3.5 0RF clopidogrel 75 mg tablet 75 mg PO DAILY Qty: 90 3RF meloxicam 15 mg Tablet 15 mg PO DAILY aspirin 81 mg Tablet,Delayed Release (Dr/Ec) 81 mg PO DAILY acetaminophen 650 mg Tablet Extended Release 650 mg PO Q8H PRN (Reason: Pain) calcium carbonate [Calcium 600] 600 mg calcium (1,500 mg) Tablet 600 mg PO DAILY nitroglycerin [Nitrostat] 0.4 mg Tablet, Sublingual 0.4 mg SUBLINGUAL Q5M PRN (Reason: Chest Pain) Rx Instructions: do not exceed 3 doses per episode vitamin B complex Tablet 1 tab PO DAILY metoprolol succinate 25 mg Tablet Extended Release 24 Hr 25 mg PO DAILY loratadine 10 mg Tablet 10 mg PO DAILY cholecalciferol (vitamin D3) [Vitamin D3] 25 mcg (1,000 unit) Capsule 25 mcg PO DAILY nusqqaqs-udw-lnzip-rxk928-elli [Qpdwwv-Hgmva-TMC (with antiox)] 500-500-66.7 mg Tablet 1 tab PO DAILY Ofev 100 mg Capsule 100 mg PO Q12H lovastatin 40 mg tablet 40 mg PO DAILY Magic Mouthwash See Rx Instructions .ROUTE .COMPLEX Rx Instructions: Swish and spit 5 - 10 mL by mouth every 4 to 6 hours as needed. Discharge Orders: Discharge ED (Routine); Ordered 09/25/24 Ordered By: Cassie Velez Referrals: Paola Wilson MD [Primary Care Provider] - Discharge Diet: Advance as tolerated Discharge Activity: Increase activity as tolerated Patient Instructions: Noncardiac Chest Pain (ED), Opioid Safety, Pain Management Activity Restrictions/Additional Instructions: Thank you for choosing [facility] for your healthcare needs today. Please realize this is an emergency room and that we are providing you with a medical screening exam and this may not be complete and all inclusive of all the testing and or work up that you may need to determine your ailment or severity of your illness. You have been screened and evaluated and felt safe for discharge. Health conditions do change or evolve sometimes and as such it is important that you follow up with your Primary Doctor to be re checked, 3-5 days is a general good time frame for follow up. You are always welcome to return to the ED for re assessment if your symptoms are worsening or you have new concerns Coding Level of Care Code ED Platform Consultant for Soniya Watkins
--- NOTE | 2024-09-25 13:53 | ECG_ITS ---
[facility] Test Date: 2024-09-25 Pat Name: Cristhian Juárez Department: Room: Gender: Male Front Office Specialist: : 1950 Requested By: Cassie Mason Order Number: [id number] Ricketts MD: MCKENNA SANTIAGO Measurements Intervals [place] Rate: 74 P: 65 [place]: 170 QRS: 52 QRSD: 112 T: 58 QT: 377 QTc: 420 Interpretive Statements SINUS RHYTHM WITH SINUS ARRHYTHMIA INCOMPLETE RIGHT BUNDLE BRANCH BLOCK [90+ ms QRS DURATION, TERMINAL R IN V1/V2, 40+ ms S IN I/aVL/V4/V5/V6] Compared to ECG 09/25/2024 11:31:56 No significant changes Electronically Signed On 09-26-2024 00:31:11 QUARTER SEAMER by MCKENNA SANTIAGO [id number]
[2024-09-25 14:55] LABS: Troponin 5 2HR 11.25 ng/L (0-15)
[2024-09-25 14:59] LABS: Troponin 5 2HR Delta -1.75 ABS# (0-10)
[2024-09-25 15:01] LABS: Bilirubin Urine 1+ (Negative); Blood Urine Negative (Negative); Glucose Urine UA Negative (Normal); Ketones Urine Trace (Negative); Leukocyte Esterase Urine Trace (Negative); Nitrate Urine Negative (Negative); Protein Urine Trace (Negative); Specific Gravity, Urine 1.029 (1.005-1.030); Urine Appearance Clear (CLEAR); Urine Color Dark Yellow (Yellow); pH Urine 6.5 (5-7)
[2024-09-25 15:03] LABS: Bacteria Urine None Seen /hpf; Hyaline Casts Urine 1.21 /lpf; RBC Urine 0-2 /hpf (0-2); Squamous Epithelial Cell Urine 0-5 /hpf (0-5); WBC Urine 0-5 /hpf (0-5)
[2024-09-25 15:28] LABS: Add Urine Culture? No
[2024-09-25] MEDS: lidocaine 2% viscous 15 ML, aluminum-mag hydrox-simethicon 30 ML, sucralfate oral liq 1 GM PO (15:35)
[2024-09-25] MEDS: famotidine 20 mg/2 mL INJ 40 MG IVP (15:39)
== END 2024-09-25 16:30 | disposition home or self-care (01) ==
PROVIDERS: Emergency Provider Emergency Medicine; PCP Family Medicine
DX: R07.89 Other chest pain (principal); R10.13 Epigastric pain; Z79.82 Long term (current) use of aspirin; Z87.891 Personal history of nicotine dependence; I25.10 Atherosclerotic heart disease of native coronary artery without angina pectoris; I10 Essential (primary) hypertension
CPT/HCPCS: 36415; 71045; 80053; 81001; 83690; 84484; 85025; 93005; 96374; 99285; J3490

== ENCOUNTER 2024-10-15 12:52 | Outpatient (CLI) | payer MEDICARE, OTHER, SELFPAY ==
--- NOTE | 2024-10-15 12:56 | XRR_ITS ---
PROCEDURE INFORMATION: Exam: XR Chest Exam date and time: 10/15/2024 1:02 PM Age: 74 years old Clinical indication: Patient HX: Wheezing and coughing x1 week, HX of pulmonary fibrosis; Additional info: Worsening chronic cough, HX pulmonary fibrosis TECHNIQUE: Imaging protocol: Radiologic exam of the chest. Views: 2 views. COMPARISON: CR XR chest 1V portable [id number] 09/25/2024 12:21 PM FINDINGS: Lungs: There is moderate severity bilateral lower lung predominant reticular and ground-glass opacity. Opacity in the right upper lung is more conspicuous than on the prior radiograph of 09/25/2024. Pleural spaces: There is no pleural effusion or pneumothorax. Heart/Mediastinum: Cardiomediastinal contours are unremarkable. Bones/joints: There are surgical anchors in the humeral heads bilaterally. No acute osseous findings. XR/XR chest 2V* [id number] IMPRESSION: 1. Moderate severity chronic bilateral lung disease consistent with reported history of pulmonary fibrosis. 2. More conspicuous opacity in the right upper lung since 09/25/2024 may be due to differences in radiographic technique. A superimposed acute process such as infection or edema in the right upper lung is not excluded.
== END 2024-10-15 12:53 | disposition home or self-care (01) ==
LOC: RAD 12:53
PROVIDERS: PCP Family Medicine; Visit Provider Family Medicine
DX: J84.10 Pulmonary fibrosis, unspecified (principal); R05.9 Cough, unspecified; R06.02 Shortness of breath
CPT/HCPCS: 71046

== ENCOUNTER → 2024-12-17 14:55 | Outpatient (BNVA) | payer MEDICARE, OTHER, SELFPAY | PROVIDERS: PCP Family Medicine; Visit Provider Nurse Practitioner Family | DX: L57.8 Other skin changes due to chronic exposure to nonionizing radiation (principal); L81.4 Other melanin hyperpigmentation; D22.39 Melanocytic nevi of other parts of face; Z85.820 Personal history of malignant melanoma of skin; Z08 Encounter for follow-up examination after completed treatment for malignant neoplasm; Z85.828 Personal history of other malignant neoplasm of skin; L57.0 Actinic keratosis | CPT/HCPCS: 17000; 99213 ==

== ENCOUNTER → 2024-12-26 07:45 | Outpatient (BNVA) | payer MEDICARE, OTHER, SELFPAY | PROVIDERS: PCP Family Medicine; Visit Provider Family Medicine | DX: Z00.00 Encounter for general adult medical examination without abnormal findings (principal); I10 Essential (primary) hypertension; G62.9 Polyneuropathy, unspecified; J84.10 Pulmonary fibrosis, unspecified; R06.02 Shortness of breath; R53.83 Other fatigue; E66.9 Obesity, unspecified; R19.7 Diarrhea, unspecified | CPT/HCPCS: 80053; 82306; 82607; 84443; 85025 ==

== ENCOUNTER → 2024-12-29 14:15 | Outpatient (BNVA) | payer MEDICARE, OTHER, SELFPAY | PROVIDERS: PCP Family Medicine; Visit Provider Family Medicine | DX: I10 Essential (primary) hypertension (principal); G62.9 Polyneuropathy, unspecified; J84.10 Pulmonary fibrosis, unspecified; R06.02 Shortness of breath; R53.83 Other fatigue; E66.9 Obesity, unspecified; R19.7 Diarrhea, unspecified | CPT/HCPCS: 80053; 82306; 82607; 84443; 85025 ==

== ENCOUNTER → 2025-04-28 12:20 | Outpatient (BNVA) | payer MEDICARE, OTHER, SELFPAY | PROVIDERS: PCP Family Medicine; Visit Provider Family Medicine | DX: R30.0 Dysuria (principal) | CPT/HCPCS: 81000 ==

== ENCOUNTER 2025-05-14 15:43 | Emergency (ER) | payer MEDICARE, OTHER, SELFPAY ==
[2025-05-14 15:46] VITALS: BP 122/76; PULSE 97; TEMP 37.2; O2SAT 96; BMI 47.2
[2025-05-14 18:44] LABS: Basophils % 0.4 %; Eosinophils # 0.3 10^3/uL (0.0-0.8); Eosinophils % 2.8 %; Hematocrit 43.4 % (37-53); Lymphocytes # 2.5 10^3/uL (0.8-4.8); Lymphocytes % 25.2 %; Mean Corpuscular HGB Conc 33.4 g/dL (30-55); Mean Corpuscular Hemoglobin 31.3 pg (27-33); Mean Corpuscular Volume 93.5 fl (82-101); Mean Platelet Volume 8.7 fL (7.4-10.4); Monocytes # 0.9 10^3/uL (0.2-0.9); Neutrophils # 6.22 10^3/uL (1.8-7.7); Neutrophils % 62.4 %; Nucleated Red Blood Cells % 0 %; Platelet Count 236 10^3/cmm (157-399); Red Blood Count 4.64 10^6/uL (3.85-5.65); Red Cell Distribution Width 13.7 % (12.1-15.1); White Blood Count 9.97 10^3/uL (3.29-11.43)
[2025-05-14 19:06] VITALS: BP 168/93; PULSE 91; RESP 16; O2SAT 95
[2025-05-14 19:08] LABS: Alanine Aminotransferase 16 U/L (0-41); Albumin Level 3.5 g/dL (3.5-5.2); Alkaline Phosphatase 62 U/L (40-130); Anion Gap 15.7 (5-19); Aspartate Amino Transferase 16 U/L (0-40); Blood Urea Nitrogen 13 mg/dL (8-23); Carbon Dioxide 26 mmol/L (22-29); Chloride 98 mmol/L (98-107); Globulin 3.8 g/dL (1.3-4.6); Glucose 105 mg/dL (65-115); Lipase 62 U/L (13-60); Osmolality Calculated 280 mOsm/kg (285-295); Potassium 4.7 mmol/L (3.5-5.1); Sodium 135 mmol/L (136-145); Total Bilirubin 0.9 mg/dL (0.15-1.2); Total Protein 7.3 g/dL (6.6-8.7)
[2025-05-14 19:36] LABS: Bilirubin Urine Negative (Negative); Blood Urine Negative (Negative); Glucose Urine UA Negative (Normal); Ketones Urine Trace (Negative); Leukocyte Esterase Urine Trace (Negative); Nitrate Urine Negative (Negative); Protein Urine 1+ (Negative); Urine Appearance Clear (CLEAR); Urine Color Dark Yellow (Yellow)
--- NOTE | 2025-05-14 19:39 | ED_ITS ---
HPI - Abdominal Pain 2 General: Chief Complaint: Abdominal Pain Stated Complaint: abdominal pain Time Seen by Provider: 05/14/25 17:54 History of Present Illness: Patient is a 75-year-old gentleman with history of CAD, chronic O2 dependency at 2 L, that presented to the ED with patient complains of abdominal pain, diffusely, for the last week and a half. He is uncomfortable where he cannot sleep. He is passing gas. His last stool was 2 days ago. Nausea is associated without emesis. No fevers. Unsure if it is associated with eating. Patient's relates they went to primary care, was told to come here for possible CAT scan. Denies history of abdominal surgery. Associated Symptoms: Reports nausea; Denies chills, fever(s) and vomiting Related Data Home Medications ?Medication ?Instructions ?Recorded ?Confirmed aspirin 81 mg tablet,delayed 81 mg PO DAILY 09/26/23 0 05/14/25 release calcium carbonate (Calcium 600) 600 mg PO DAILY 05/14/25 cholecalciferol (vitamin D3) 25 25 mcg PO DAILY 05/14/25 mcg (1,000 unit) capsule (Vitamin D3) crrwpgofqwf-zsw-nsncmblzk-hrb 1 tab PO DAILY 09/26/23 05/14/25 149-hyalur 500 mg-500 mg-66.7 mg tablet (Qmjgtwxzrqw-Uvfptjxqakn-ANE (with antiox)) metoprolol succinate 25 mg 25 mg PO DAILY 09/26/23 tablet,extended release 24 hr vitamin B complex 1 tab PO DAILY 09/26/2304/20 lovastatin 40 mg tablet 40 mg PO DAILY 09/25/2404/20 umeclidinium 62.5 mcg/actuation 1 inh inhalation QDAY 04/28/25 05/14/25 blister powder for inhalation (Incruse Ellipta) Previous Rx's ?Medication ?Instructions ?Recorded clopidogrel 75 mg tablet 75 mg PO DAILY #90 tabs 04/11 ranolazine 500 mg tablet,extended 500 mg PO BID 60 day s #120 tabs 10/28/24 release,12 hr albuterol sulfate 90 mcg/actuation 2 inh inhalation QI D PRN shortness 02/25/25 aerosol inhaler of breath or wheezing #8.5 g magdalena omeprazole 40 mg capsule,delayed See Rx Instructions . Route 04/02/25 release .COMPLEX #30 caps *LIDO/DIPHEN/MINTOX 1:1:1 See Rx Instructions .Route 0 04/28/25 .COMPLEX #100 mL meloxicam 15 mg tablet 15 mg PO DAILY #30 tabs 04/19 07/13 nitroglycerin 0.4 mg sublingual 0.4 mg sublingual Q5M PRN Chest 05/06/25 tablet (Nitrostat) Pain #30 tabs ciprofloxacin HCl 500 mg tablet 500 mg PO BID 7 days # 14 tabs 05/14/25 (Cipro) metronidazole 500 mg tablet 500 mg PO BID 7 days #14 t abs 05/14/25 oxycodone 5 mg capsule 5 mg PO Q8H PRN pain #20 cap s 05/14/25 Allergies Allergy/AdvReac Type Severity Reaction Status Date / Time Penicillins Allergy ALGY-Hives Verified 05/14/25 15:51 Sulfa (Sulfonamide Allergy ALGY-Rash Verified 05/14/25 15:51 Antibiotics) Review of Systems 2 Const: Denies: fever(s) or chills Eyes: Denies: change in vision or blurry vision ENMT: Denies: throat pain or mouth pain Card: Denies: chest pain or palpitations Resp: Denies: dyspnea or productive cough GI: Reports: abdominal pain and nausea; Denies: vomiting : Denies: flank pain or difficulty urinating Musc: Denies: neck pain or back pain Neuro: Denies: headache(s) or numbness in extremities PFSH ED 2 PFSH: Medical History Pulmonary fibrosis History of melanoma Coronary artery disease Hypertension Surgical History Status post trigger finger release History of rotator cuff surgery bilateral History of left knee replacement History of bilateral hip replacements History of coronary artery stent placement Family History Grandmother CAD (coronary artery disease) Father Testicular cancer Mother No problems noted. 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 Physical Exam 2 Const: COMMON NORMALS: no acute distress, average body habitus and patient oriented x3 HENMT: COMMON NORMALS: normocephalic and atraumatic HEAD & SCALP: n ormocephalic and atraumatic Resp: COMMON NORMALS: normal respiratory effort and clear to auscultation bilaterally AUSCULTATION: clear to auscultation bilaterally Cardio: COMMON NORMALS: regular rate and regular rhythm RATE: regular rate RHYTHM: regular rhythm GI: COMMON NORMALS: Soft to palpation INSPECTION: Yes normal to inspection AUSCULTATION: Yes normoactive bowel sounds PALPATION: Yes Soft to palpation and Yes Tenderness to palpation present (GI) Details: RUQ : COMMON NORMALS: Yes no CVA tenderness BLADDER/KIDNEY EXAM: Yes no CVA tenderness Back/Pelvis: COMMON NORMALS: no CVA tenderness Extremity: COMMON NORMALS: full ROM and capillary refill normal Neuro: COMMON NORMALS: patient oriented x3 Psych: COMMON NORMALS: mental status grossly normal and Normal thought process present THOUGHT PROCESS: Normal thought process present Course 2 Reevaluation(s): Reevaluation #1: Patient is improved after p.o. [place] x 1 Consultations: Consultation #1: Discussed with Dr. Retana by phone. Recommended 7 days of antibiotics/ciprofloxacin, and analgesic. He is to call his office tomorrow to make an appointment for next week. He is to follow a bland/clear diet Vital Signs: Vital signs: Vital Signs Temperature 98.9 F 05/14/25 15:46 Pulse Rate 91 05/14/25 23:05 Respiratory Rate 18 05/14/25 23:05 Blood Pressure 133/82 05/14/25 23:05 Pulse Oximetry 96 05/14/25 23:05 Oxygen Delivery Me thod Room Air 05/14/25 19:06 Oxygen Flow Rate 2 05/14/25 15:46 MDM - Abdominal Pain Medical Decision Making Patient is a 75-year-old gentleman with positive He sign, acute cholecystitis, without cholelithiasis or pericholecystic fluid. Discussed with patient this is associated with the need to have his gallbladder removed. ALT/AST/bilirubin is in range. Lipase is minimally elevated. He will follow-up with Dr. Retana. Discussed preferences with Dr. Retana. Patient's questions answered to his satisfaction Lab Data 05/14/25 18:40 05/14/25 18:40 Labs/Radiology: Radiology Impressions Abdomen Ultrasound 05/14/25 19:46 IMPRESSION: Ultrasonographic findings above related to cholelithiasis with possible acute cholecystitis. Correlate clinically. Laboratory Results WBC 9.97 10^3/uL (3.29-11.43) 05/14/25 18:40 RBC 4.64 10^6/uL (3.85-5.65) 05/14/25 18:40 Hgb 14.50 g/dL (11.27-16.99) 05/14/25 18:40 Hct 43.4 % (37-53) 05/14/25 18:40 MCV 93.5 fl (82-101) 05/14/25 18:40 MCH 31.3 pg (27-33) 05/14/25 18:40 MCHC 33.4 g/dL (30-55) 05/14/25 18:40 RDW 13.7 % (12.1-15.1) 05/14/25 18:40 Plt Count 236 10^3/cmm (157-399) 05/14/25 18:40 MPV 8.7 fL (7.4-10.4) 05/14/25 18:40 Neut % (Auto) 62.4 % 05/14/25 18:40 Lymph % (Auto) 25.2 % 05/14/25 18:40 Evans % (Auto) 9.0 % 05/14/25 18:40 Eos % (Auto) 2.8 % 05/14/25 18:40 Baso % (Auto) 0.4 % 05/14/25 18:40 Neut # (Auto) 6.22 10^3/uL (1.8-7.7) 05/14/25 18:40 Lymph # (Auto) 2.5 10^3/uL (0.8-4.8) 05/14/25 18:40 Evans # (Auto) 0.9 10^3/uL (0.2-0.9) 05/14/25 18:40 Eos # (Auto) 0.3 10^3/uL (0.0-0.8) 05/14/25 18:40 Baso # (Auto) 0.0 10^3/uL (0.0-0.1) 05/14/25 18:40 Nucleated RBC % (auto) 0 % 05/14/25 18:40 Nucleated RBCs # 0.0 /100WBC 05/14/25 18:40 Sodium 135 mmol/L (136-145) L 05/14/25 18:40 Potassium 4.7 mmol/L (3.5-5.1) 05/14/25 18:40 Chloride 98 mmol/L (98-107) 05/14/25 18:40 Carbon Dioxide 26 mmol/L (22-29) 05/14/25 18:40 Anion Gap 15.7 (5-19) 05/14/25 18:40 BUN 13 mg/dL (8-23) 05/14/25 18:40 Creatinine 0.9 mg/dL (0.7-1.2) 05/14/25 18:40 GFR Calculation Not Reportable 05/14/25 18:40 Glucose 105 mg/dL (65-115) 05/14/25 18:40 Calculated Osmolality 280 mOsm/kg (285-295) L 05/14/25 18:40 Calcium 9.0 mg/dL (8.5-10.5) 05/14/25 18:40 Total Bilirubin 0.9 mg/dL (0.15-1.2) 05/14/25 18:40 AST 16 U/L (0-40) 05/14/25 18:40 ALT 16 U/L (0-41) 05/14/25 18:40 Alkaline Phosphatase 62 U/L (40-130) 05/14/25 18:40 Total Protein 7.3 g/dL (6.6-8.7) 05/14/25 18:40 Albumin 3.5 g/dL (3.5-5.2) 05/14/25 18:40 Globulin 3.8 g/dL (1.3-4.6) 05/14/25 18:40 Lipase 62 U/L (13-60) H 05/14/25 18:40 Urine Color Dark yellow (Yellow) A 05/14/25 19:22 Urine Appearance Clear (CLEAR) 05/14/25 19:22 Urine pH 6.0 (5-7) 05/14/25 19:22 Ur Specific [place] 1.030 (1.005-1.030) 05/14/25 19:22 Urine Protein 1+ (Negative) A 05/14/25 19:22 Urine Glucose (UA) Negative (Normal) 05/14/25 19:22 Urine Ketones Trace (Negative) 05/14/25 19:22 Urine Blood Negative (Negative) 05/14/25 19:22 Urine Nitrate Negative (Negative) 05/14/25 19:22 Urine Bilirubin Negative (Negative) 05/14/25 19:22 Urine Urobilinogen 1.0 mg/dL (Negative) 05/14/25 19:22 Ur Leukocyte Esterase Trace (Negative) A 05/14/25 19:22 Urine RBC 0-2 /hpf (0-2) 05/14/25 19:22 Urine WBC 0-5 /hpf (0-5) 05/14/25 19:22 Ur Squamous Epith Cells 0-5 /hpf (0-5) 05/14/25 19:22 Amorphous Sediment Not Reportable 05/14/25 19:22 Urine Bacteria None seen /hpf (NONE) 05/14/25 19:22 Hyaline Casts 2.46 /lpf 05/14/25 19:22 All radiology interpretation(s) finalized by discharge Discharge Plan Discharge Patient Disposition: Home Clinical Impression: Acute cholecystitis Condition: Stable Prescriptions: New ciprofloxacin HCl [Cipro] 500 mg tablet 500 mg PO BID 7 Days Qty: 14 0RF oxycodone 5 mg capsule 5 mg PO Q8H PRN (Reason: pain) Qty: 20 0RF metronidazole 500 mg tablet 500 mg PO BID 7 Days Qty: 14 0RF No Action Incruse Ellipta 62.5 mcg/actuation blister with device 1 inh inhalation QDAY clopidogrel 75 mg tablet 75 mg PO DAILY Qty: 90 3RF ranolazine 500 mg tablet extended release 12 hr 500 mg PO BID 60 Days Qty: 120 5RF albuterol sulfate 90 mcg/actuation HFA aerosol inhaler 2 inh inhalation QID PRN (Reason: shortness of breath or wheezing) Qty: 8.5 2RF omeprazole 40 mg capsule,delayed release(DR/EC) See Rx Instructions .ROUTE .COMPLEX Qty: 30 2RF Dose Instruction: TAKE 1 CAPSULE BY MOUTH DAILY Rx Instructions: TAKE 1 CAPSULE BY MOUTH DAILY *LIDO/DIPHEN/MINTOX 1:1:1 See Rx Instructions .ROUTE .COMPLEX Qty: 100 0RF Dose Instruction: SWISH AND SPIT 5-10 ML BY MOUTH EVERY 6 HOURS NEEDED Rx Instructions: SWISH AND SPIT 5-10 ML BY MOUTH EVERY 6 HOURS NEEDED meloxicam 15 mg tablet 15 mg PO DAILY Qty: 30 2RF nitroglycerin [Nitrostat] 0.4 mg tablet, sublingual 0.4 mg SUBLINGUAL Q5M PRN (Reason: Chest Pain) Qty: 30 0RF Rx Instructions: do not exceed 3 doses per episode aspirin 81 mg Tablet,Delayed Release (Dr/Ec) 81 mg PO DAILY calcium carbonate [Calcium 600] 600 mg calcium (1,500 mg) Tablet 600 mg PO DAILY vitamin B complex Tablet 1 tab PO DAILY metoprolol succinate 25 mg Tablet Extended Release 24 Hr 25 mg PO DAILY cholecalciferol (vitamin D3) [Vitamin D3] 25 mcg (1,000 unit) Capsule 25 mcg PO DAILY exofsmyh-mqq-bfrbd-[id number]-uhuc [Tpammz-Vcgye-IWI (with antiox)] 500-500-66.7 mg Tablet 1 tab PO DAILY lovastatin 40 mg tablet 40 mg PO DAILY Discharge Orders: Discharge ED (Routine); Ordered 05/14/25 Ordered By: Patience Aguayo Referrals: Jhon Retana MD [Physician, General Surgery] Paola Wilson MD [Primary Care Provider, Family Practice] Discharge Diet: Clear Liquid Discharge Activity: Resume usual activity Patient Instructions: Cholecystitis (ED), Clear Liquid Diet (ED), Opioid Safety, Pain Management, Patient Portal & [facility] Instructions Activity Restrictions/Additional Instructions: Call your surgeon tomorrow for an appointment for next week You were prescribed antibiotics. Please utilize probiotics to avoid infectious diarrhea You have pain medication. Do not overmedicate. Do not cheat on your diet and compensate with pain medication. You are on a clear liquid diet. Return to ED for worsening pain, refractory nausea, and vomiting. Print Language: Croatian Coding Level of Care Code ED Personal Security Specialist for Soniya Watkins
[2025-05-14 19:44] LABS: Add Urine Microscopic? YES; Bacteria Urine None Seen /hpf; Hyaline Casts Urine 2.46 /lpf; RBC Urine 0-2 /hpf (0-2); Squamous Epithelial Cell Urine 0-5 /hpf (0-5); WBC Urine 0-5 /hpf (0-5)
[2025-05-14 19:45] LABS: Add Urine Culture? No
--- NOTE | 2025-05-14 19:46 | USR_ITS ---
PROCEDURE INFORMATION: Exam: US Abdomen, Limited; Right Upper Quadrant Exam date and time: 05/14/2025 8:35 PM Age: 75 years old Clinical indication: Abdominal pain; Epigastric; Additional info: [place] sign positive, minimal elevation of lipase, ruq pain TECHNIQUE: Imaging protocol: Real time ultrasound of the abdomen with image documentation. Limited exam focused on the right upper quadrant. COMPARISON: No relevant prior studies available. FINDINGS: Liver: Normal. No masses. Gallbladder: Multiple gallstones identified. Gallbladder thickness up to 5 mm. No pericholecystic fluid. However sonographic He's sign was positive. Biliary ducts: Normal. No stones. No dilation. Pancreas: Visualized pancreas is unremarkable. Right kidney: Normal. No mass. No hydronephrosis. US/US abdomen limited [id number] IMPRESSION: Ultrasonographic findings above related to cholelithiasis with possible acute cholecystitis. Correlate clinically.
[2025-05-14 20:26] VITALS: BP 170/93; PULSE 82; RESP 16; O2SAT 96
[2025-05-14 21:00] VITALS: BP 183/131; PULSE 84; RESP 16; O2SAT 92
[2025-05-14] MEDS: HYDROcodone-acetaminophen 10-325 mg Tablet 1 TAB PO (23:01)
[2025-05-14 23:05] VITALS: BP 133/82; PULSE 91; RESP 18; O2SAT 96
== END 2025-05-14 23:07 | disposition home or self-care (01) ==
PROVIDERS: Emergency Provider Physician Assistant; PCP Family Medicine
DX: K81.0 Acute cholecystitis (principal); Z79.82 Long term (current) use of aspirin; Z87.891 Personal history of nicotine dependence; I25.10 Atherosclerotic heart disease of native coronary artery without angina pectoris; I10 Essential (primary) hypertension
CPT/HCPCS: 36415; 76705; 80053; 81001; 83690; 85025; 99284; J9999

== ENCOUNTER → 2025-05-21 08:10 | Outpatient (BNVA) | payer MEDICARE, OTHER, SELFPAY | PROVIDERS: PCP Family Medicine; Visit Provider Student in an Organized Health Care Education/Training Program | DX: K82.9 Disease of gallbladder, unspecified (principal) | CPT/HCPCS: 99204 ==

== ENCOUNTER → 2025-06-02 08:29 | Outpatient (BNVA) | payer MEDICARE, OTHER, SELFPAY | PROVIDERS: PCP Family Medicine; Visit Provider Family Medicine | DX: Z01.818 Encounter for other preprocedural examination (principal) | CPT/HCPCS: 93005 ==

== ENCOUNTER → 2025-06-04 10:41 | Outpatient (BNVA) | payer MEDICARE, OTHER, SELFPAY | PROVIDERS: PCP Family Medicine; Visit Provider Nurse Practitioner Family | DX: L82.1 Other seborrheic keratosis (principal); L81.4 Other melanin hyperpigmentation; L57.8 Other skin changes due to chronic exposure to nonionizing radiation; D22.39 Melanocytic nevi of other parts of face; Z08 Encounter for follow-up examination after completed treatment for malignant neoplasm; Z85.820 Personal history of malignant melanoma of skin; L57.0 Actinic keratosis | CPT/HCPCS: 17000; 99213 ==

== ENCOUNTER 2025-06-17 06:55 | Outpatient (CLI) | payer MEDICARE, OTHER, SELFPAY ==
[2025-06-17 07:33] VITALS: PULSE 93; RESP 18; O2SAT 95
== END 2025-06-17 06:56 | disposition home or self-care (01) ==
PROVIDERS: PCP Family Medicine; Visit Provider Internal Medicine
DX: J84.10 Pulmonary fibrosis, unspecified (principal); R06.09 Other forms of dyspnea; R05.9 Cough, unspecified; R06.2 Wheezing
CPT/HCPCS: 94060; 94618; 94726; 94729; 99204; J7613

== ENCOUNTER 2025-06-18 10:26 | Outpatient (CLI) | payer MEDICARE, OTHER, SELFPAY ==
--- NOTE | 2025-06-18 10:30 | CTR_ITS ---
PROCEDURE INFORMATION: Exam: CT Chest Without Contrast; Diagnostic Exam date and time: 06/18/2025 11:15 AM Age: 75 years old Clinical indication: Condition or disease; Lung condition and disease; Pulmonary nodule, solitary; Follow up pulmonary fibrosis and lung nodule; Additional info: Follow up on IPF and lung nodule TECHNIQUE: Imaging protocol: Diagnostic computed tomography of the chest without contrast. Radiation optimization: All CT scans at this facility use at least one of these dose optimization techniques: automated exposure control; mA and/or kV adjustment per patient size (includes targeted exams where dose is matched to clinical indication); or iterative reconstruction. COMPARISON: CT chest [facility] [id number] 11/03/2022 2:03 PM RADIATION DOSE METRICS: Total DLP (mGy-cm): 690.23 FINDINGS: Lungs: No focal lung consolidation. No suspicious nodule. Mild interval worsening of bilateral lung scarring compared to CT chest without contrast from 11/03/2022. There is peripheral reticulation, architectural distortion, and mild bronchiectasis, more prominent in the upper lungs with mild involvement of the right lung base. Pleural spaces: Unremarkable. No pneumothorax. No pleural effusion. Heart: Heavy mitral annular and coronary artery calcifications. Lymph nodes: Unremarkable. No enlarged lymph nodes. Vasculature: Unremarkable. No aortic aneurysm. Gallbladder and biliary ducts: Cholelithiasis. Bones/joints: Partially visualized anchors in the bilateral humeral heads. Diffuse idiopathic skeletal hyperostosis of the thoracic spine. Soft tissues: Unremarkable. CT/CT chest [facility] [id number] IMPRESSION: 1. Mild interval progression of bilateral upper lung predominant fibrosis compared to CT chest from 11/03/2022. 2. No suspicious nodule or consolidation.
== END 2025-06-18 10:27 | disposition home or self-care (01) ==
LOC: RAD 10:28
PROVIDERS: PCP Family Medicine; Visit Provider Internal Medicine
DX: J84.10 Pulmonary fibrosis, unspecified (principal); K80.20 Calculus of gallbladder without cholecystitis without obstruction
CPT/HCPCS: 71250

== ENCOUNTER → 2025-06-25 09:18 | Outpatient (BNVA) | payer MEDICARE, OTHER, SELFPAY | PROVIDERS: PCP Family Medicine; Visit Provider Student in an Organized Health Care Education/Training Program | DX: K81.1 Chronic cholecystitis (principal) | CPT/HCPCS: 99214 ==

== ENCOUNTER 2025-07-19 11:52 | Emergency (ER) | payer MEDICARE, OTHER, SELFPAY ==
--- OUTSIDE RECORDS SUMMARY | 2021-04-26 07:13 | XMS_ITS | Continuity of Care Document ---
Author Organization [employer] [place] Address [address] [place] [address] [address] [place] [address] Phone Care Team Providers Care Railroad Construction Director Name Role Phone Wassung PT,DPT,OCS,CSCS, Dorys Unavailable Unavailable Procedures Procedure Date Therapeutic Activities Neuromuscular Re-Ed Therapeutic Exercise Manual Therapy Progress Note Therapeutic Activities Neuromuscular Re-Ed Therapeutic Exercise Therapeutic Activities Neuromuscular Re-Ed Therapeutic Exercise Electrical Stimulation Therapeutic Activities Neuromuscular Re-Ed Therapeutic Exercise Electrical Stimulation Therapeutic Activities Neuromuscular Re-Ed Therapeutic Exercise Electrical Stimulation Therapeutic Activities Neuromuscular Re-Ed Therapeutic Exercise Electrical Stimulation Therapeutic Activities Neuromuscular Re-Ed Therapeutic Exercise Electrical Stimulation Therapeutic Activities Neuromuscular Re-Ed Therapeutic Exercise Electrical Stimulation Therapeutic Activities Neuromuscular Re-Ed Therapeutic Exercise Electrical Stimulation Therapeutic Activities Neuromuscular Re-Ed Therapeutic Exercise Electrical Stimulation PT Re-Evaluation Therapeutic Activities Neuromuscular Re-Ed Therapeutic Exercise Electrical Stimulation Therapeutic Activities Neuromuscular Re-Ed Therapeutic Exercise Electrical Stimulation Progress Note Therapeutic Activities Neuromuscular Re-Ed Therapeutic Exercise Electrical Stimulation Therapeutic Activities Neuromuscular Re-Ed Therapeutic Exercise Electrical Stimulation Therapeutic Activities Neuromuscular Re-Ed Therapeutic Exercise Electrical Stimulation Therapeutic Activities Neuromuscular Re-Ed Therapeutic Exercise Electrical Stimulation Therapeutic Activities Neuromuscular Re-Ed Therapeutic Exercise Electrical Stimulation Therapeutic Activities Neuromuscular Re-Ed Therapeutic Exercise Electrical Stimulation Neuromuscular Re-Ed Therapeutic Exercise Electrical Stimulation Therapeutic Activities Neuromuscular Re-Ed Therapeutic Exercise Manual Therapy Electrical Stimulation Therapeutic Activities Neuromuscular Re-Ed Therapeutic Exercise Electrical Stimulation Therapeutic Activities Neuromuscular Re-Ed Therapeutic Exercise Hot or Cold Pack Progress Note Therapeutic Activities Neuromuscular Re-Ed Therapeutic Exercise Electrical Stimulation Therapeutic Activities Neuromuscular Re-Ed Therapeutic Exercise Manual Therapy Electrical Stimulation Therapeutic Activities Neuromuscular Re-Ed Therapeutic Exercise Electrical Stimulation Therapeutic Activities Neuromuscular Re-Ed Therapeutic Exercise Manual Therapy Electrical Stimulation Therapeutic Activities Neuromuscular Re-Ed Manual Therapy Electrical Stimulation Therapeutic Activities Neuromuscular Re-Ed Therapeutic Exercise Electrical Stimulation PT Evaluation Moderate Complexity Therapeutic Activities Neuromuscular Re-Ed Therapeutic Exercise Electrical Stimulation Advance Directives Directive Yes / No Effective Date File Name No Information Encounters Encounter Description Practice Location Reason(s) For Visit Diagnoses Date Provider Providers Copied on Encounter [facility] [facility], [place], [place], [id number], tel:[phone] [facility] No Information Wassung Dorys. . Referring Provider: [address], [place], [address]. tel:[phone] [facility] [address], [place], [place], [id number], tel:[phone] [facility] No Information Wassung Dorys. . Referring Provider: [address], [place], [address]. tel:[phone] [facility] [address], [place], [place], [id number], tel:[phone] [facility] No Information Wassung Dorys. . Referring Provider: [address], [place], [address]. tel:[phone] [place] [address], [address], [place], [place], [id number], tel:[phone] [facility] [place] [facility] No Information Lizabeth Thorpe. . Referring Provider: [address], [place], [address]. tel:[phone] [place] [address] [address], [place], [place], [address], tel:[phone] [facility] [place] No Information Wassung Dorys. . Referring Provider: [address], [place], [address]. tel:[phone] [place] [address], [address], [place], [place], [address], [place] tel:[phone] [facility] No Information Wassung Dorys. . Referring Provider: [address], [place], [address]. tel:[phone] [place] [address] [address], [place], [place], [address], [place] tel:[phone] [facility] No Information Lizabeth Thorpe. . Referring Provider: [address], [place], [address]. tel:[phone] [place] [address], [address], [place], [place], [address], tel:[phone] [place] No Information Wassung Dorys. . Referring Provider: [address], [place], [address]. tel:[phone] [place] [id number] [address], [place], [place], [address], [place] tel:[phone] [facility] [place] No Information Wassung Dorys. . Referring Provider: Aidan Euceda, [address], [place], [address]. tel:[phone] [place] [id number] [address], [place], [place], [address], [place] tel:[phone] [facility] [place] No Information Superior Maurilio. . Referring Provider: [address], [place], [address]. tel:[phone] [place] [id number] [address], [place], [place], [address], [place] tel:[phone] [facility] [place] No Information Superior Maurilio. . Referring Provider: [address], [place], [address]. tel:[phone] [place] [id number] [address], [place], [place], [address], [place] tel:[phone] [facility] [place] No Information Wassung Dorys. . Referring Provider: [address], [place], [address]. tel:[phone] [place] [id number] [address], [place], [place], [address], [place] tel:[phone] [facility] [place] No Information Wassung Dorys. . Referring Provider: [address], [place], [address]. tel:[phone] [place] [id number] [address], [place], [place], [address], [place] tel:[phone] [place] No Information Lizabeth Maurilio. . Referring Provider: [address], [place], [address]. tel:[phone] [place] [address], [address], [place], [place], [address], [place] tel:[phone] [place] No Information Lizabeth Maurilio. . Referring Provider: [address], [place], [address]. tel:[phone] [place] [address] [address], [place], [place], [address], tel:[phone] [place] No Information Lizabeth Maurilio. . Referring Provider: [address], [place], [address]. tel:[phone] [place] [address], [address], [place], [place], [address], [place] tel:[phone] [place] No Information Lizabeth Maurilio. . Referring Provider: [address], [place], [address]. tel:[phone] [place], [place] [id number] [address], [place], [place], [address], [place] tel:[phone] [place] No Information Wassung Dorys. . Referring Provider: [address], [place], [address]. tel:[phone] [place] [id number] [address], [place], [place], [address], [place] tel:[phone] [place] No Information Lizabeth Maurilio. . Referring Provider: Aidan Euceda, [address], [place], [address]. tel:[phone] [place] [address] [address], [place], [place], [address], [place] tel:[phone] [place] No Information Mark Saul. . Referring Provider: Aidan Euceda, [address], [place], [address]. tel:[phone] [place] [address], [address], [place], [place], [address], [place] tel:[phone] [place] No Information Lizabeth Maurilio. . Referring Provider: [address], [place], [address]. tel:[phone] [place] [address] [address], [place], [place], [address], [place] tel:[phone] [place] No Information Lizabeth Maurilio. . Referring Provider: Jo[address], [place], [address]. tel:[phone] [place] [address], [address], [place], [place], [address], [place] tel:[phone] [place] No Information Lizabeth Maurilio. . Referring Provider: [address], [place], [address]. tel:[phone] [place] [id number] [address], [place], [place], [address], [place] tel:[phone] [place] No Information Lizabeth Maurilio. . Referring Provider: [address], [place], [address]. tel:[phone] [place] [address], [address], [place], [place], [address], [place] tel:[phone] [place] No Information Lizabeth Thorpe. . Referring Provider: [address], [place], [address]. tel:[phone] [place] [address] [address], [place], [place], [address], [place] tel:[phone] [place] No Information Wassung Dorys. . Referring Provider: [address], [place], [address]. tel:[phone] [place] [address], [address], [place], [place], [address], [place] tel:[phone] [place] No Information Lizabeth Thorpe. . Referring Provider: [address], [place], [address]. tel:[phone] [place] [phone] [address], [place], [place], [address], [place] tel:[phone] [place] No Information Wassung Dorys. . Referring Provider: [address], [place], [address]. tel:[phone] [place] [address], [address], [place], [place], [address], [place] tel:[phone] [place] No Information Wassung Dorys. . Referring Provider: [address], [place], [address]. tel:[phone] [place], [place] [address] [address], [place], [place], [address], [place] tel:[phone] [facility] [place] No Information Mark Saul. . Referring Provider: Aidan Euceda, [address], [place], [address]. tel:[phone] Family History Family Member Type Diagnosis Age At Onset No Information Payers Payer name Insurance type Covered alliance party ID Authoriza tion(s) Medicare [place] [id number] [facility] [place] [employer] [id number] Social History Type Description Quantity Date Captured Comments Sex Male Smoking Status No Information Chief Complaint And Reason For Visit No Information Reason For Referral Reason For Referral No Information History Of Present Illness Encounter Date Complaint History Of Prese nt Illness No Information Functional Status Date Functional Assessmen t No Information Instructions Date Instruction Additional Infor mation Giving encouragement to exercise Related to Overweight Giving encouragement to exercise Related to Overweight Assessments Type Assessment Date No Information Patient Care Teams Name Effective Dates (start - stop) Status Members No Information
[2025-07-19 12:15] VITALS: BP 134/78; PULSE 76; RESP 18; TEMP 36.9; O2SAT 95; BMI 45.7
--- NOTE | 2025-07-19 12:25 | ECG_ITS ---
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 Measurements Intervals [place] Rate: 69 P: 41 DE: 163 QRS: 32 QRSD: 116 T: 51 QT: 384 QTc: 412 Interpretive Statements SINUS RHYTHM INCOMPLETE RIGHT BUNDLE BRANCH BLOCK [90+ ms QRS DURATION, TERMINAL R IN V1/V2, 40+ ms S IN I/aVL/V4/V5/V6] Compared to ECG 06/02/2025 08:33:32 NO SIGNIFICANT CHANGE Electronically Signed On 07-19-2025 21:52:33 CDT by Anupam Jeffery M.D. [email or web address]
--- NOTE | 2025-07-19 12:25 | CTR_ITS ---
PROCEDURE INFORMATION: Exam: CT Head Without Contrast Exam date and time: 07/19/2025 12:52 PM Age: 75 years old Clinical indication: Injury or trauma; Fall; Blunt trauma (contusions or hematomas) TECHNIQUE: Imaging protocol: Computed tomography of the head without contrast. Radiation optimization: All CT scans at this facility use at least one of these dose optimization techniques: automated exposure control; mA and/or kV adjustment per patient size (includes targeted exams where dose is matched to clinical indication); or iterative reconstruction. COMPARISON: No relevant prior studies available. RADIATION DOSE METRICS: Total DLP (mGy-cm): 1131.7 FINDINGS: Brain: Moderate nonspecific white matter low attenuation which may be related to microvascular ischemic changes. No acute confluent lobar ischemic infarct. Right caudate head lacune. Cerebral ventricles: The ventricles and sulci are prominent in size compatible with mild atrophy. Paranasal sinuses: No fluid levels. Mastoid air cells: Visualized mastoid air cells are well aerated. Bones: No acute calvarial fracture. Soft tissues: Visualized soft tissues are unremarkable. CT/CT head wo con* [id number] IMPRESSION: No acute intracranial abnormality. If symptoms persist, consider further evaluation with MRI, if there are no contraindications to obtaining a MRI scan.
--- NOTE | 2025-07-19 12:39 | XRR_ITS ---
PROCEDURE INFORMATION: Exam: XR Chest Exam date and time: 07/19/2025 12:44 PM Age: 75 years old Clinical indication: Injury or trauma; Fall; Blunt trauma (contusions or hematomas); Prior surgery; Surgery date: 6+ months; Surgery type: Lt shoulder TECHNIQUE: Imaging protocol: Radiologic exam of the chest. Views: 1 view. COMPARISON: CT chest [facility] [id number] 06/18/2025 11:15 AM FINDINGS: Lungs: Bilateral lower lobe atelectasis/infiltrates rvqp-[id number]-wlex-right. Chronic appearing interstitial lung markings. Pleural spaces: No pleural effusion. No pneumothorax. Heart/Mediastinum: No cardiomegaly. Bones/joints: No acute bony abnormality. XR/XR chest 1V portable [id number] IMPRESSION: Bilateral lower lobe atelectasis/infiltrates [id number]-[id number]-kldd-right. Recommend clinical correlation and follow-up imaging as clinically warranted.
--- NOTE | 2025-07-19 12:39 | XRR_ITS ---
PROCEDURE INFORMATION: Exam: XR Left Shoulder Exam date and time: 07/19/2025 12:44 PM Age: 75 years old Clinical indication: Injury or trauma; Fall; Blunt trauma (contusions or hematomas); Shoulder; Left TECHNIQUE: Imaging protocol: Radiologic exam of the left shoulder. Views: 2 or more views. COMPARISON: CT chest wo con [id number] 06/18/2025 11:15 AM FINDINGS: Bones/joints: Surgical anchors are noted within the left humeral head. Recommend correlation with surgical history. Degenerative changes are noted involving the left acromioclavicular joint. No acute left shoulder fracture or dislocation. Soft tissues: Left lung perihilar and infrahilar atelectasis/infiltrates. XR/XR shoulder LT min 2V* [id number] IMPRESSION: 1. No acute bony abnormality. If symptoms persist, consider repeat plain films in 7-10 days. If there is clinical concern for internal derangement, then consider further evaluation with MRI, if MRI is clinically safe to obtain. 2. Left lung infrahilar/perihilar atelectasis/infiltrates.
--- NOTE | 2025-07-19 12:39 | W.ED.FALL ---
HPI - Fall General: Chief Complaint: Fall Stated Complaint: fall / nausea Time Seen by Provider: 07/19/25 12:08 Source: patient Mode of arrival: ambulatory Limitations: no limitations History of Present Illness: 75-year-old male states that he got up this morning and had tripped and fell states he hit the left side of his head along with left shoulder and left chest when he fell. States he did have a headache along with some shoulder pain he states he took a nap when he woke up he had some memory loss he then had some nausea states that is improved currently has a mild headache. He denies any other injury from the fall denies any neck pain. States he is post have his gallbladder out in a month but denies any abdominal pain currently Associated symptoms-after fall: Denies abdominal pain, headache(s) or neck pain Related Data Home Medications ?Medication ?Instructions ?Recorded ?Confirmed aspirin 81 mg tablet,delayed 81 mg PO DAILY 09/26/23 07/19/25 release calcium carbonate (Calcium 600) 600 mg PO DAILY 09/26/23 07/19/25 cholecalciferol (vitamin D3) 25 25 mcg PO DAILY 09/26/23 07/19/25 mcg (1,000 unit) capsule (Vitamin D3) bbxsaasorsh-kae-wekuunlsa-hrb 1 tab PO DAILY 09/26/23 07/19/25 149-hyalur 500 mg-500 mg-66.7 mg tablet (Vzgywcvwvnk-Wuthybagptb-UXI (with antiox)) metoprolol succinate 25 mg 25 mg PO DAILY 09/26/23 07/19/25 tablet,extended release 24 hr vitamin B complex 1 tab PO DAILY 09/26/23 07/19/25 lovastatin 40 mg tablet 40 mg PO DAILY 09/25/24 07/19/25 umeclidinium 62.5 mcg/actuation 1 inh inhalation QDAY 04/28/25 07/19/25 blister powder for inhalation (Incruse Ellipta) Previous Rx's ?Medication ?Instructions ?Recorded clopidogrel 75 mg tablet 75 mg PO DAILY #90 tabs 02/22/24 ranolazine 500 mg tablet,extended 500 mg PO BID 60 days #120 tabs 10/28/24 release,12 hr albuterol sulfate 90 mcg/actuation 2 inh inhalation QID PRN shortness 02/25/25 aerosol inhaler of breath or wheezing #8.5 grams omeprazole 40 mg capsule,delayed See Rx Instructions .Route 04/02/25 release .COMPLEX #30 caps *LIDO/DIPHEN/MINTOX 1:1:1 See Rx Instructions .Route 04/28/25 .COMPLEX #100 mL meloxicam 15 mg tablet 15 mg PO DAILY #30 tabs 05/06/25 nitroglycerin 0.4 mg sublingual 0.4 mg sublingual Q5M PRN Chest 05/06/25 tablet (Nitrostat) Pain #30 tabs Allergies Allergy/AdvReac Type Severity Reaction Status Date / Time Penicillins Allergy ALGY-Hives Verified 07/19/25 12:15 Sulfa (Sulfonamide Allergy ALGY-Rash Verified 07/19/25 12:15 Antibiotics) Review of Systems Const: Denies: fever(s), chills, body aches or change in appetite Eyes: Denies: blurry vision or eye discomfort ENMT: Denies: throat pain or dental pain Resp: Denies: dyspnea GI: Reports: nausea; Denies: abdominal pain, vomiting or diarrhea Musc: Reports: extremity pain; Denies: neck pain or back pain Skin/Breast: Denies: rash Neuro: Denies: headache(s) PFSH ED PFSH: Medical History Pulmonary fibrosis History of melanoma Coronary artery disease Hypertension Surgical History Status post trigger finger release History of rotator cuff surgery bilateral History of left knee replacement History of bilateral hip replacements History of coronary artery stent placement Family History Grandmother CAD (coronary artery disease) Father Testicular cancer Mother No problems noted. 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 Physical Exam Const: COMMON NORMALS: no acute distress, patient oriented x3 and healthy appearing HENMT: COMMON NORMALS: normocephalic HEAD & SCALP: normocephalic Eye: COMMON NORMALS: conjunctivae normal CONJUNCTIVA: Yes conjunctivae normal Neck/C-Spine: COMMON NORMALS: full ROM and supple CERVICAL SPINE: No pain with cervical ROM and No Cervical spine tenderness Chest: COMMONS NORMALS: normal inspection of the chest OTHER: Slight left chest tenderness Resp: COMMON NORMALS: normal respiratory effort, No retractions, No use of accessory muscles and clear to auscultation bilaterally AUSCULTATION: clear to auscultation bilaterally Cardio: COMMON NORMALS: regular rate, regular rhythm and No murmurs present (Cardio) RATE: regular rate RHYTHM: regular rhythm GI: COMMON NORMALS: Normal to inspection, nondistended, normoactive bowel sounds present, Soft to palpation, non-tender and no masses PALPATION: Yes Soft to palpation Extremity: COMMON NORMALS: full ROM NARRATIVE EXTREMITY EXAM: tenderness over left shoulder no obvious deformity Neuro: COMMON NORMALS: patient oriented x3, moves all extremities and no focal motor deficits Psych: COMMON NORMALS: mental status grossly normal, Normal thought process present and cooperative THOUGHT PROCESS: Normal thought process present Skin: COMMON NORMALS: no rashes or lesions noted and no wounds GENERAL SKIN EXAM: no rashes or lesions noted Course Vital Signs: Vital signs: Vital Signs Temperature 98.4 F 07/19/25 12:15 Pulse Rate 76 07/19/25 12:15 Respiratory Rate 18 07/19/25 12:15 Blood Pressure 134/78 07/19/25 12:15 Pulse Oximetry 95 07/19/25 12:15 MDM - Fall Medical Decision Making Patient presents here close head injury from a fall imaging here shows no fracture head CT was normal blood works normal as well he does not have a cough or fever x-ray is likely atelectasis. He stable for discharge follow-up with PCP return if worsening he understands agrees to plan. Medical Records I reviewed the patient's medical records. Lab Data I reviewed the patient's lab results. 07/19/25 13:04 07/19/25 13:[address] 07/19/25 12:25 IMPRESSION: No acute intracranial abnormality. If symptoms persist, consider further evaluation with MRI, if there are no contraindications to obtaining a MRI scan. Chest X-Ray 07/19/25 12:39 IMPRESSION: Bilateral lower lobe atelectasis/infiltrates xyko-tzngton-faho-right. Recommend clinical correlation and follow-up imaging as clinically warranted. Shoulder X-Ray 07/19/25 12:39 IMPRESSION: 1. No acute bony abnormality. If symptoms persist, consider repeat plain films in 7-10 days. If there is clinical concern for internal derangement, then consider further evaluation with MRI, if MRI is clinically safe to obtain. 2. Left lung infrahilar/perihilar atelectasis/infiltrates. Laboratory Results WBC 5.67 10^3/uL (3.29-11.43) 07/19/25 13:04 RBC 4.43 10^6/uL (3.85-5.65) 07/19/25 13:04 Hgb 14.30 g/dL (11.27-16.99) 07/19/25 13:04 Hct 42.0 % (37-53) 07/19/25 13:04 MCV 94.8 fl (82-101) 07/19/25 13:04 MCH 32.3 pg (27-33) 07/19/25 13:04 MCHC 34.0 g/dL (30-55) 07/19/25 13:04 RDW 14.4 % (12.1-15.1) 07/19/25 13:04 Plt Count 153 10^3/cmm (157-399) L 07/19/25 13:04 MPV 9.1 fL (7.4-10.4) 07/19/25 13:04 Neut % (Auto) 49.0 % 07/19/25 13:04 Lymph % (Auto) 33.5 % 07/19/25 13:04 [place] % (Auto) 10.4 % 07/19/25 13:04 Eos % (Auto) 6.2 % 07/19/25 13:04 Baso % (Auto) 0.7 % 07/19/25 13:04 Neut # (Auto) 2.78 10^3/uL (1.8-7.7) 07/19/25 13:04 Lymph # (Auto) 1.9 10^3/uL (0.8-4.8) 07/19/25 13:04 [place] # (Auto) 0.6 10^3/uL (0.2-0.9) 07/19/25 13:04 Eos # (Auto) 0.4 10^3/uL (0.0-0.8) 07/19/25 13:04 Baso # (Auto) 0.0 10^3/uL (0.0-0.1) 07/19/25 13:04 Nucleated RBC % (auto) 0 % 07/19/25 13:04 Nucleated RBCs # 0.0 /100WBC 07/19/25 13:04 Sodium 135 mmol/L (136-145) L 07/19/25 13:04 Potassium 5.0 mmol/L (3.5-5.1) 07/19/25 13:04 Chloride 100 mmol/L (98-107) 07/19/25 13:04 Carbon Dioxide 22 mmol/L (22-29) 07/19/25 13:04 Anion Gap 18.0 (5-19) 07/19/25 13:04 BUN 13 mg/dL (8-23) 07/19/25 13:04 Creatinine 0.8 mg/dL (0.7-1.2) 07/19/25 13:04 GFR Calculation Not Reportable 07/19/25 13:04 Glucose 99 mg/dL (65-115) 07/19/25 13:04 Calculated Osmolality 280 mOsm/kg (285-295) L 07/19/25 13:04 Calcium 8.9 mg/dL (8.5-10.5) 07/19/25 13:04 Total Bilirubin 0.6 mg/dL (0.15-1.2) 07/19/25 13:04 AST 31 U/L (0-40) 07/19/25 13:04 ALT 23 U/L (0-41) 07/19/25 13:04 Alkaline Phosphatase 53 U/L (40-130) 07/19/25 13:04 Total Protein 6.7 g/dL (6.6-8.7) 07/19/25 13:04 Albumin 3.4 g/dL (3.5-5.2) L 07/19/25 13:04 Globulin 3.3 g/dL (1.3-4.6) 07/19/25 13:04 Lipase 35 U/L (13-60) 07/19/25 13:04 All radiology interpretation(s) finalized by discharge EKG Data EKG 1: I personally reviewed and interpreted this EKG as follows: EKG interpretation date: 07/19/25 EKG interpretation time: 13:05 Interpretation: nsr hr [address] elevation qrs 116 qtc 402 Discharge Plan Discharge Patient Disposition: Home Clinical Impression: Closed head injury, Fall Condition: Stable Prescriptions: No Action Incruse Ellipta 62.5 mcg/actuation blister with device 1 inh inhalation QDAY clopidogrel 75 mg tablet 75 mg PO DAILY Qty: 90 3RF ranolazine 500 mg tablet extended release 12 hr 500 mg PO BID 60 Days Qty: 120 5RF albuterol sulfate 90 mcg/actuation HFA aerosol inhaler 2 inh inhalation QID PRN (Reason: shortness of breath or wheezing) Qty: 8.5 2RF omeprazole 40 mg capsule,delayed release(DR/EC) See Rx Instructions .ROUTE .COMPLEX Qty: 30 2RF Dose Instruction: TAKE 1 CAPSULE BY MOUTH DAILY Rx Instructions: TAKE 1 CAPSULE BY MOUTH DAILY *LIDO/DIPHEN/MINTOX 1:1:1 See Rx Instructions .ROUTE .COMPLEX Qty: 100 0RF Dose Instruction: SWISH AND SPIT 5-10 ML BY MOUTH EVERY 6 HOURS NEEDED Rx Instructions: SWISH AND SPIT 5-10 ML BY MOUTH EVERY 6 HOURS NEEDED meloxicam 15 mg tablet 15 mg PO DAILY Qty: 30 2RF nitroglycerin [Nitrostat] 0.4 mg tablet, sublingual 0.4 mg SUBLINGUAL Q5M PRN (Reason: Chest Pain) Qty: 30 0RF Rx Instructions: do not exceed 3 doses per episode aspirin 81 mg Tablet,Delayed Release (Dr/Ec) 81 mg PO DAILY calcium carbonate [Calcium 600] 600 mg calcium (1,500 mg) Tablet 600 mg PO DAILY vitamin B complex Tablet 1 tab PO DAILY metoprolol succinate 25 mg Tablet Extended Release 24 Hr 25 mg PO DAILY cholecalciferol (vitamin D3) [Vitamin D3] 25 mcg (1,000 unit) Capsule 25 mcg PO DAILY ozovzhig-lnz-jihma-lsb676-opzp [Cdsidv-Yplhu-MSA (with antiox)] 500-500-66.7 mg Tablet 1 tab PO DAILY lovastatin 40 mg tablet 40 mg PO DAILY Discharge Orders: Discharge ED (Routine); Ordered 07/19/25 Ordered By: Lia Chaudhari Referrals: Paola Wilson MD [Primary Care Provider, [facility]] - 4-7 days Discharge Diet: Advance as tolerated Discharge Activity: Resume usual activity Patient Instructions: Head Injury (ED) Print Language: Arabic Coding Level of Care Code ED Sawmill Relief Worker for Soniya Watkins
[2025-07-19 13:09] LABS: Hematocrit 42.0 % (37-53); Hemoglobin 14.30 g/dL (11.27-16.99); Mean Corpuscular HGB Conc 34.0 g/dL (30-55); Mean Corpuscular Hemoglobin 32.3 pg (27-33); Mean Corpuscular Volume 94.8 fl (82-101); Nucleated Red Blood Cells % 0 %; Platelet Count 153 10^3/cmm (157-399); Red Blood Count 4.43 10^6/uL (3.85-5.65); White Blood Count 5.67 10^3/uL (3.29-11.43)
[2025-07-19] MEDS: ondansetron 2 mg/ML SDV 2 mL 4 MG IVP (13:13)
[2025-07-19 13:26] LABS: Albumin Level 3.4 g/dL (3.5-5.2); Alkaline Phosphatase 53 U/L (40-130); Blood Urea Nitrogen 13 mg/dL (8-23); Calcium 8.9 mg/dL (8.5-10.5); Carbon Dioxide 22 mmol/L (22-29); Chloride 100 mmol/L (98-107); Creatinine Clr Calc Pharmacy 104.5412; Globulin 3.3 g/dL (1.3-4.6); Glucose 99 mg/dL (65-115); Lipase 35 U/L (13-60); Osmolality Calculated 280 mOsm/kg (285-295); Sodium 135 mmol/L (136-145); Total Protein 6.7 g/dL (6.6-8.7)
[2025-07-19 13:27] LABS: Anion Gap 18.0 (5-19); Aspartate Amino Transferase 31 U/L (0-40); Potassium 5.0 mmol/L (3.5-5.1)
[2025-07-19 13:28] LABS: Alanine Aminotransferase 23 U/L (0-41)
== END 2025-07-19 13:49 | disposition home or self-care (01) ==
PROVIDERS: Emergency Provider Emergency Medicine; PCP Family Medicine
DX: S09.8XXA Other specified injuries of head, initial encounter (principal); Z79.02 Long term (current) use of antithrombotics/antiplatelets; Z79.82 Long term (current) use of aspirin; Z87.891 Personal history of nicotine dependence; I25.10 Atherosclerotic heart disease of native coronary artery without angina pectoris; I10 Essential (primary) hypertension; Z85.820 Personal history of malignant melanoma of skin; W01.10XA Fall on same level from slipping, tripping and stumbling with subsequent striking against unspecified object, initial encounter
CPT/HCPCS: 70450; 71045; 73030; 80053; 83690; 85025; 93005; 96361; 96374; 99285; J2405; J7030

== ENCOUNTER → 2025-07-30 17:28 | Outpatient (BNVA) | payer MEDICARE, OTHER, SELFPAY | PROVIDERS: PCP Family Medicine; Visit Provider Internal Medicine Cardiovascular Disease | DX: R07.9 Chest pain, unspecified (principal) | CPT/HCPCS: 93005 ==

== ENCOUNTER 2025-08-19 05:40 | Day surgery (SDC) | payer MEDICARE, OTHER, SELFPAY ==
--- NOTE | 2025-08-18 15:14 | ANES.PREANE2 ---
Pre-Anesthetic Assessment Height/Weight: Height 5 ft 7 in Preop Diagnosis: Chronic cholecystitis Operation Date: 08/19/25 07:00 Proposed Procedures p Laparoscopic POSSIBLE OPEN Cholecystectomy 50709 K81.1(Not Applicable) - Jhon Retana MD Was Beta Ricarda taken within 24 hours: Yes Was Clonidine taken within 24 hours: N/A Social No alcohol and No tobacco Exam alert, oriented x 3, clear to auscultation bilaterally and regular rate & rhythm Airway Submandibular: within normal limits Cervical ROM: within normal limits Mallampati: Class III Dentition: full Comments: Comments: Patient states that he has a couple sores on his lower inside lip. These are hard to see Anesthetic Plan ASA status: 3 Anesthesia: General Other: No prior issues with anesthesia NPO since yesterday evening History of GERD, on omeprazole Hypertension on metoprolol OCTAVIO on CPAP Pulmonary fibrosis, no home O2 CAD history, s/p PCI Recent EKG showing sinus rhythm with possible right ventricular conduction delay Prior echo 2022 showing EF of 72% Cardiac clearance received Labs 07/19/2025 reviewed acceptable for procedure Plan for GETA Medications/Allergies Home Medications ?Medication ?Instructions ?Recorded ?Confirmed ?Last Taken ?Type aspirin 81 mg tablet,delayed 81 mg PO DAILY 09/26/23 08/18/25 08/18/25 History release calcium carbonate (Calcium 600) 600 mg PO DAILY 09/26/23 08/18/25 08/18/25 History cholecalciferol (vitamin D3) 25 25 mcg PO DAILY 09/26/23 08/18/25 08/18/25 History mcg (1,000 unit) capsule (Vitamin D3) tjtebjlylbe-dgr-segzxmmwu-hrb 1 tab PO DAILY 09/26/23 08/18/25 08/18/25 History 149-hyalur 500 mg-500 mg-66.7 mg tablet (Wvpbvlymork-Uolbolpeqos-GBC (with antiox)) metoprolol succinate 25 mg 25 mg PO DAILY 09/26/23 08/18/25 08/19/25 History tablet,extended release 24 hr vitamin B complex 1 tab PO DAILY 09/26/23 08/18/25 08/18/25 History clopidogrel 75 mg tablet 75 mg PO DAILY #90 tabs 02/22/24 08/18/25 08/13/25 Rx lovastatin 40 mg tablet 40 mg PO DAILY 09/25/24 08/18/2508/18/25 History ranolazine 500 mg tablet,extended 500 mg PO BID 60 days #120 tabs 10/28/24 08/18/25 08/19/25 Rx release,12 hr albuterol sulfate 90 mcg/actuation 2 inh inhalation QID PRN shortness 02/25/25 08/18/25 Unknown Rx aerosol inhaler of breath or wheezing #8.5 grams meloxicam 15 mg tablet 15 mg PO DAILY #30 tabs 05/06/25 08/18/25 08/19/25 Rx umeclidinium 62.5 mcg-vilanterol 1 inh inhalation DAILY 07/30/25 08/18/25 08/18/25 History 25 mcg/actuation powdr for inhalation (Anoro Ellipta) nitroglycerin 0.4 mg sublingual 0.4 mg sublingual Q5M PRN Chest 08/05/25 08/18/25 Unknown Rx tablet (Nitrostat) Pain #30 tabs *LIDO/DIPHEN/MINTOX 1:1:1 5 - 10 ml PO DAILY 08/18/25 08/18/25 08/19/25 History omeprazole 40 mg capsule,delayed 40 mg PO DAILY 08/18/25 08/18/25 08/18/25 History release nintedanib 100 mg capsule (Ofev) 100 mg PO DAILY 08/19/25 08/19/25 08/19/25 History Allergies Allergy/AdvReac Type Severity Reaction Status Date / Time Penicillins Allergy ALGY-Difficulty Verified 08/19/25 06:07 Breathing Sulfa (Sulfonamide Allergy ALGY-Rash Verified 08/18/25 10:41 Antibiotics) [facility] Anesthesia Medical History (Updated 07/27/25 @ 00:00 by JERRICA Painter) Pulmonary fibrosis History of melanoma Coronary artery disease Hypertension Surgical History Status post trigger finger release History of rotator cuff surgery bilateral History of left knee replacement History of bilateral hip replacements History of coronary artery stent placement Family History Grandmother CAD (coronary artery disease) Father Testicular cancer Mother No problems noted. 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
[2025-08-19] VITALS (14 sets, daily range): BP systolic 117–150; BP diastolic 66–89; PULSE 83–101; RESP 18–20; TEMP 36.4; O2SAT 94–99; BMI 42.5
--- NOTE | 2025-08-19 07:04 | W.PM.OPSFHP ---
Same Day Surgery H&P Indication for Procedure/HPI DATE OF PROCEDURE: August 19, 2025 CHIEF COMPLAINT/INDICATIONFOR SURGICAL PROCEDURE: chronic cholecystitis PREOP DIAGNOSIS: Chronic cholecystitis PLANNED PROCEDURE: Operation Date: 08/19/25 07:00 Proposed Procedures p Laparoscopic POSSIBLE OPEN Cholecystectomy 22267 K81.1(Not Applicable) - Jhon Retana MD Medications/Allergies* Home Medications ?Medication ?Instructions ?Recorded ?Confirmed ?Type aspirin 81 mg tablet,delayed 81 mg PO DAILY 09/26/23 08/18/25 History release calcium carbonate (Calcium 600) 600 mg PO DAILY 09/26/23 08/18/25 History cholecalciferol (vitamin D3) 25 25 mcg PO DAILY 09/26/23 08/18/25 History mcg (1,000 unit) capsule (Vitamin D3) txmbshswwtt-osz-juuobkcvr-hrb 1 tab PO DAILY 09/26/23 08/18/25 History 149-hyalur 500 mg-500 mg-66.7 mg tablet (Xjgzredsibr-Usjrogzeiiw-GBY (with antiox)) metoprolol succinate 25 mg 25 mg PO DAILY 09/26/23 08/18/25 History tablet,extended release 24 hr vitamin B complex 1 tab PO DAILY 09/26/23 08/18/25 History lovastatin 40 mg tablet 40 mg PO DAILY 09/25/24 08/18/25 History umeclidinium 62.5 mcg-vilanterol 1 inh inhalation DAILY 07/30/25 08/18/25 History 25 mcg/actuation powdr for inhalation (Anoro Ellipta) *LIDO/DIPHEN/MINTOX 1:1:1 5 - 10 ml PO DAILY 08/18/25 08/18/25 History omeprazole 40 mg capsule,delayed 40 mg PO DAILY 08/18/25 08/18/25 History release nintedanib 100 mg capsule (Ofev) 100 mg PO DAILY 08/19/25 08/19/25 History Allergies/Adverse Reactions Allergy/AdvReac Type Severity Reaction Status Date / Time Penicillins Allergy ALGY-Difficulty Verified 08/19/25 06:07 Breathing Sulfa (Sulfonamide Allergy ALGY-Rash Verified 08/18/25 10:41 Antibiotics) Current Medications: Generic Name Dose Route Start Last Admin Trade Name Freq PRN Reason Stop Dose Admin Sodium Chloride 1,000 mls @ 30 mls/hr 08/19/25 06:00 08/19/25 06:40 Sodium Chloride 0.9% IV 08/20/25 05:59 30 mls/hr .Q24H ENRICO Administration Pertinent History/Comorbid Conditions* Medical History (Updated 07/27/25 @ 00:00 by JERRICA Painter) Pulmonary fibrosis History of melanoma Coronary artery disease Hypertension Surgical History (Updated 08/10/24 @ 18:14 by Paola Wilson MD) Status post trigger finger release History of rotator cuff surgery bilateral History of left knee replacement History of bilateral hip replacements History of coronary artery stent placement Family History (Updated 11/26/23 @ 13:28 by Paola Wilson MD) CAD (coronary artery disease) Grandmother Testicular cancer Father Social History Smoking and tobacco/nicotine status: former use of tobacco/nicotine Quit status (tobacco/nicotine): has quit using Year quit tobacco: 1999 Alcohol intake: current Alcohol intake frequency: holidays/special occasions only Alcohol type: beer Substance/Drug Use: never Household members: spouse Marital status: 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 Discussed non operative options (pain control), minimally invasive options (cystic duct stent, endoscopic biliary stent - not available at our facility) which are lower risk for perioperative complications, and the patient still wants to proceed with surgery. Answered all of their questions. Discussed risks and benefits and patient wants to proceed with laparoscopic cholecystectomy, possible open. Patient understands that the surgery may be aborted pending intraoperative findings. He has seen the jawbone breaker and otr van cdl truck driver and both agree that he is medically optimized. Patient understands that the risks of the surgery include postoperative infection, bleeding, bile leak, incisional hernia, myocardial infarction, respiratory failure, and in very rare instances injuries to the bowel, common bile duct, portal vein, and liver failure. Coding Level of Care Code Acute Code for J Luisg Fwd
[2025-08-19] MEDS: lidocaine-epi 1% 20 mL INJ INJECTION (07:44)
--- NOTE | 2025-08-19 08:12 | P.OP_ITS ---
Operative Report Date of procedure: August 19, 2025 Pre-op diagnosis: Chronic cholecystitis Post-op diagnosis: same Post-op findings: Chronically inflamed gallbladder. Pathology: none sent Surgeon: Jhon Retana MD Bookkeeper Receptionist: N/A Anesthesia: General Estimated blood loss (mL): 10 Complications: N/A Findings: Chronically inflamed gallbladder. Adequate hemostasis at end of case. No bile leaks. Applied fibrin glue on cystic plate for hemostasis at end of case. Condition: stable Disposition: same day Brief History: 75-year-old male who presented with chronic cholecystitis. Discussed risk and benefits and patient agreed to proceed with laparoscopic cholecystectomy possible open. Procedure: I discussed the risks and benefits of laparoscopic cholecystectomy, possible open, and obtained consent prior to proceeding to the operating room. SCDs were utilized. Prophylactic antibiotics were administered. General anesthesia was induced. The patient was placed supine, and was prepped and draped in the usual sterile fashion. Insufflation to 15mmHg was achieved using a Veress needle at Beasley's point. A 12mm optiview trocar was placed at the umbilicus under direct visualization. The left upper quadrant was inspected, and no injuries were noted. Two 5mm ports were placed in the right upper quadrant, and a 12mm working port was placed in the epigastrium. The gallbladder was then retracted cephalad through the lateral RUQ port, and the infundibulum grabbed through the medial RUQ port and retracted laterally. The gallbladder was inflammed consistent with the diagnosis of chronic cholecystitis. I proceeded to score the peritoneum over the medial aspect of the gallbladder using a laparoscopic hook with electrocautery. Then the infundibulum was retracted medially in order to score the peritoneum over the lateral aspect of the galbladder. Using a combination of energy and blunt dissection with the [place] and a Kittner dissector, the cystic artery and cystic duct were dissected. I then proceeded to dissect the cystic plate in order to to achieve the critical view of safety (CVS - hepatocystic triangle was cleared of fat and fibrous tissue, the lower one-third of the gallbladder was from the liver to expose the cystic plate, two and only two structures were seen entering the gallbladder, the cystic duct and the cystic artery). The cystic artery and the cystic duct were clipped three times (leaving two clips on the proximal end of both structures). I then proceeded to dissect the gallbladder off the liver using hook electrocautery. The specimen was placed in an endocatch bag and retrieved from the abdomen through the port on the epigastrium. I then irrigated the gallbladder fossa with 1L of NS to confirm adequate hemostasis and the absence of any bile leaks. The gallbladder fossa was then cauterized again and fibrin glue applied. Prior to ending the laparoscopic portion, I examined the rest of the abdomen and did not find any abnormalities or injuries. The abdomen was then desufflated, and the 12mm ports were closed using 0 vicryl on a UR needle after irrigating copiously. Skin was closed using 4-0 monocryl and surgical glue. The patient woke up from anesthesia and transferred to PACU without any complications.
[2025-08-19] MEDS: ondansetron 2 mg/ML SDV 2 mL 4 MG IVP (08:35)
[2025-08-19] MEDS: fentaNYL 50 mcg/mL INJ 2mL IVP (08:55)
[2025-08-19] MEDS: oxyCODONE 5 mg IR Tab/Cap PO (09:48)
--- NOTE | 2025-08-19 10:30 | ANE.PACU2 ---
Inpatient post-anesthesia follow up: Airway intact: Yes Vital signs: Temperature 97.5 F Pulse Rate 87 Respiratory Rate 18 Blood Pressure 137/71 Pulse Oximetry 97 Oxygen Delivery Me thod Room Air Oxygen Flow Rate Fraction of Inspir ed Oxygen Hydration adequate: Yes Nausea and vomiting: No Pain level: 1 Mental status: Baseline
== END 2025-08-19 10:30 | disposition home or self-care (01) ==
PROVIDERS: PCP Family Medicine; Visit Provider Student in an Organized Health Care Education/Training Program
PROC: 0FT44ZZ Resection of Gallbladder, Percutaneous Endoscopic Approach (ICD-10-PCS; CPT 47562; principal; 2025-08-19 07:00)
DX: K80.44 Calculus of bile duct with chronic cholecystitis without obstruction (principal); Z79.82 Long term (current) use of aspirin; K21.9 Gastro-esophageal reflux disease without esophagitis; Z85.820 Personal history of malignant melanoma of skin; I25.10 Atherosclerotic heart disease of native coronary artery without angina pectoris; I10 Essential (primary) hypertension; Z87.891 Personal history of nicotine dependence; G47.33 Obstructive sleep apnea (adult) (pediatric); Z99.89 Dependence on other enabling machines and devices
CPT/HCPCS: 47562; 88304; A4216; C9250; J0131; J1100; J2371; J2405; J2704; J3010; J3373; J3490; J7030; J7050; J9999

== ENCOUNTER → 2025-08-31 08:02 | Outpatient (BNVA) | payer MEDICARE, OTHER, SELFPAY | PROVIDERS: PCP Family Medicine; Visit Provider Student in an Organized Health Care Education/Training Program | DX: Z98.890 Other specified postprocedural states (principal) | CPT/HCPCS: 99024 ==